=== PATIENT | female | born 2005 | race Caucasian/White ===

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

== ENCOUNTER 2023-08-16 16:06 | Inpatient (IN) | payer OTHER, MEDICAID, SELFPAY ==
[2023-08-16] VITALS (9 sets, daily range): BP systolic 113–144; BP diastolic 72–89; PULSE 91–114; TEMP 36.4–36.6; BMI 41.6
[2023-08-16 18:05] LABS: Basophils Percent Auto 0.2 % (0.2-1.2); Eosinophils Absolute Auto 0.1 K/mm3 (0-0.3); Eosinophils Percent Auto 0.5 % (0-4.4); Hematocrit 37.1 % (37.0-47.0); Hemoglobin 11.7 g/dL (12.0-15.0); Immature Granulocyte Absolute 0.07 K/mm3 (0.00-0.031); Immature Granulocyte Percent A 0.5 % (0-0.5); Lymphocytes Absolute Auto 2.18 K/mm3 (0.9-3.2); Lymphocytes Percent Auto 15.5 % (18.3-44.2); Mean Corpuscular HGB Conc 31.5 g/dl (32-36); Mean Corpuscular Hemoglobin 23.6 pg (26-34); Mean Corpuscular Volume 74.9 fl (80-100); Mean Platelet Volume 10.4 fl (7.4-10.4); Monocytes Absolute Auto 1.2 K/mm3 (0.1-0.6); Monocytes Percent Auto 8.5 % (2.6-8.5); Neutrophils Absolute Auto 10.6 K/mm3 (1.3-6.7); Neutrophils Percent Auto 74.8 % (45.5-73.1); Platelet Count Result 253 k/mm3 (150-375); Red Blood Count 4.95 M/mm3 (4.2-5.4); Red Cell Distribution Width 15.6 % (11.5-14.5); White Blood Count 14.1 K/mm3 (4.5-10.0)
[2023-08-16 18:16] LABS: Microcytosis 1+ (NORMAL); Ovalocytes 1+; Platelet Estimate Adequate (Adequate); Schistocytes None Seen
[2023-08-16] MEDS: LACTATED RINGERS 1,000 ML 125 ML IV CONT (18:39)
[2023-08-16] MEDS: AMPICILLIN 2 GM/NS 100 ML 2 GM/100 ML BAG IVPB (18:39)
[2023-08-16] MEDS: miSOPROStol 25 MCG TABLET 50 MCG BY MOUTH ×2 (18:42→23:00)
[2023-08-16] MEDS: AMPICILLIN 1 GM/NS 50 ML 1 GM/50 ML BAG IVPB (23:00)
[2023-08-17] VITALS (58 sets, daily range): BP systolic 96–152; BP diastolic 51–118; PULSE 69–170; TEMP 36.2–36.6; O2SAT 98–100
[2023-08-17] MEDS: AMPICILLIN 1 GM/NS 50 ML 1 GM/50 ML BAG IVPB ×5 (02:59→19:16)
[2023-08-17] MEDS: miSOPROStol 25 MCG TABLET 50 MCG BY MOUTH (03:00)
[2023-08-17] MEDS: CALCIUM CARBONATE (TUMS) 500 MG (200 MG ELEMENTAL) 400 MG PO (03:34)
[2023-08-17] MEDS: OXYTOCIN 30 UNITS/NS 500 ML 30 UNITS/500 ML BAG IV CONT (08:51)
[2023-08-17 11:19] LABS: Rapid Plasma Reagin Non-Reactive (NonReactive)
[2023-08-17] MEDS: LACTATED RINGERS 1,000 ML 125 ML IV CONT ×2 (15:16→19:05)
--- NOTE | 2023-08-17 15:37 | WPDOBADMIT ---
Obstetrics - Admit Note Admission Note: record reviewed. No pertinent additions to the history and/or any subsequent changes in the physical findings that are not consistent with the expected course of the were found. Additions to the history and/or subsequent changes in the physical findings follow. None. EIL, complicated by FGR, now resolved. testing reactive. S/p cytotec x2, now on pitocin per protocol. FHR category I. Continue with current induction plan.
--- NOTE | 2023-08-17 15:39 | PM.OBPNLAB ---
Pain Control Date/time seen: 08/17/23 15:39 Comments: tolerating contractions well Pelvic Exam Dilation (cm): 3 Effacement (%): 70 station: -2 Amniotic membrane status: Ruptured Comments: AROM at 1245 of clear fluid Contractions Monitor mode: External Status status: Category l Assessment and Plan Pitocin rate (mU/min): 16 Assessment: induction ongoing Plan: continuous present management
[2023-08-17] MEDS: fentaNYL CITRATE INJ (*CRX) 100 MCG/2 ML VIAL 50 MCG IV PUSH ×2 (17:21→18:55)
--- NOTE | 2023-08-17 18:46 | P.PNAN_ITS ---
Anes - Initial Pre Proc Eval Procedure: Labor epidural Date/Time: 08/17/23 18:46 Surgeon: Davy Lennon MD Pre Op Diagnosis: Labor pain Pre Op Diagnosis: IOL Patient Data Age: 17 Gender: F Height: 1.55 m Weight: 100 kg Last Vital Signs Temp 36.6 C 08/17/23 17:10 Pulse 80 08/17/23 18:31 BP 136/64 08/17/23 18:31 O2 Del Method Room Air 08/16/23 18:28 Allergies Allergy/AdvReac Type Severity Reaction Status Date / Time No Known Allergies Allergy Verified 07/20/23 15:15 Home Medications Medication Instructions Recorded Confirmed Type vits no.126-ferrous fum 1 tablet PO DAILY 07/20/23 07/20/23 History 28 mg iron-folic acid 800 mcg tablet (Classic ) Laboratory Tests 08/16/23 17:42 RPR Non-reactive (NonReactive) Blood Type A Positive Antibody Screen Negative Patient hx anesthesia problems: none Family hx anesthesia problems: none Results Review: All pre-operative results and documents have been reviewed as part of the pre- operative evaluation. [facility] Past Medical History Medical History No significant medical problems Surgical History Surgical History No history of previous surgery Family History Family History Other No significant family history Social History Social History Smoking status: Current every day smoker Tobacco type: e-cigarettes/vaping Second hand tobacco smoke exposure: No Additional smoking assessment comments: pt vapes Alcohol intake: never Substance use: former Substance use type: marijuana Do You Feel Safe in your Home?: Yes Lack of Transportation: No Lack of Food: Never True Current Housing: I Have Housing Concerned About Future Housing: No Difficulty Paying Gas/Electric Bills: No Difficulty Paying for Meds: No Currently Unemployed: YES Education: High School Diploma/GED Difficulty w/ Childcare or Family Care: No Living arrangements: with family Additional living arrangements comments: She lives at home with her parents. Spiritual care concerns: No Anes - Eval Final PreProcedure Day of Procedure 08/17/23 18:46 Patient weight: obese Heart: regular rate and rhythm Lungs: clear to auscultation Neurological: alert and oriented ASA classification: III Anesthesia type and monitoring: regional epidural and standard monitoring Results Review: All pre-operative results and documents have been reviewed as part of the pre- operative evaluation. Informed Consent: The patient's anesthetic plan and its attendant risks and benefits were discussed with the patient/family/POA. Questions were solicited and answers provided to the satisfaction of the patient/family/POA.
--- NOTE | 2023-08-17 19:11 | WPDANESEPN ---
Anes - Epidural Procedure Note Date/Time: 08/17/23 19:11 Consent: I have discussed with the patient/family/POA, the placement of an epidural catheter and the use of epidural narcotic/local anesthetic for labor analgesia and/or postoperative pain management, including associated potential risks, benefits, complications and side effects. I have discussed alternative methods of labor analgesia and/or postoperative pain management. The patient/family/POA, understand(s) and wish(es) to proceed with epidural narcotic/local anesthetic for labor analgesia and/or postoperative pain management. Time-Out: A pre-procedural Time-Out was completed immediately before starting the procedure and confirmed: Patient Identification, Site, Procedure, Patient Position and the Availability of Requisite Equipment. Clinical Indications: Labor Pain Epidural Insertion Note Patient position: sitting Skin prep: chlorhexidine and sterile drape Needle: 18g Tuohy-Schliff Catheter: 20g Unstyleted Technique: Loss of resistance. Level of insertion: L3/4 Catheter skin rafa (cm): 12 Length in epidural space (cm): 7 Skin anesthesia: lidocaine 1% Test dose: 1.5% Lidocaine with 1:[id number] Epi, negative for subarachnoid Inj and negative for intravascular Inj Time of test dose: 19:02 Observations: tolerated well Complications: none
[2023-08-18] VITALS (136 sets, daily range): BP systolic 45–138; BP diastolic 25–102; PULSE 60–204; RESP 16–20; TEMP 36.3–37.4; O2SAT 93–100
[2023-08-18] MEDS: LACTATED RINGERS 1,000 ML 125 ML IV CONT ×3 (03:30→13:30)
[2023-08-18] MEDS: AMPICILLIN 1 GM/NS 50 ML 1 GM/50 ML BAG IVPB ×4 (03:30→10:04)
[2023-08-18] MEDS: ACETAMINOPHEN 500 MG TABLET 1000 MG (04:22)
[2023-08-18] MEDS: CALCIUM CARBONATE (TUMS) 500 MG (200 MG ELEMENTAL) (04:22)
[2023-08-18] MEDS: OXYTOCIN 30 UNITS/NS 500 ML 30 UNITS/500 ML BAG IV CONT (06:27)
--- NOTE | 2023-08-18 08:24 | PM.OBPNLAB ---
Pain Control Date/time seen: 08/18/23 08:24 Comments: Pain well controlled with epidural Pelvic Exam Dilation (cm): 7 Effacement (%): 90 station: -2 Amniotic membrane status: Ruptured Contractions Monitor mode: Internal Status status: Category l Comments: prolonged decel following rotation, recovered well Assessment and Plan Pitocin rate (mU/min): 22 Assessment: induction ongoing Comments: LOT position on BSUS; attempted to manually rotate head with little change. Pelvis appears adequate. WIll continue position changes to encourage descent into pelvis.
[2023-08-18] MEDS: SODIUM CHLORIDE 0.9% IV 300 ML 600 ML I-UTERINE (10:04)
[2023-08-18] MEDS: CALCIUM CARBONATE (TUMS) 500 MG (200 MG ELEMENTAL) PO (10:04)
--- NOTE | 2023-08-18 12:44 | PM.OBPNLAB ---
Pain Control Date/time seen: 08/18/23 12:44 Comments: Pain well controlled with epidural Pelvic Exam Dilation (cm): 7 Effacement (%): 90 station: -2 Amniotic membrane status: Ruptured Contractions Monitor mode: Internal Status status: Category l Assessment and Plan Plan: Comments: SVE unchanged x 12 hours despite position changes and attempt at manual rotation. FHR intermittently category II with recurrent variable decels and intermittent late decels. Moderate variability throughout. Discussed with patient that given no change after multiple interventions, would recommend primary c section for failure to progess. R/b including bleeding, infection and injury to surrounding structures discussed with patient. Patient voices understanding and agrees to proceed with primary c section. Will start ancef and azithromycin 2/2 ROM.
[2023-08-18] MEDS: AZITHROMYCIN 500 MG/NS 250 ML 500 MG/250 ML BAG 250 MG IVPB (12:57)
[2023-08-18] MEDS: ACETAMINOPHEN 500 MG TABLET 1000 MG PO (12:58)
[2023-08-18] MEDS: ONDANSETRON INJ 4 MG/2 ML VIAL IV PUSH (13:13)
[2023-08-18] MEDS: FAMOTIDINE 20 MG/2 ML VIAL IV PUSH (13:13)
[2023-08-18] MEDS: ceFAZolin 2 GM/D5W 50 ML 2 GM/50 ML BAG IVPB (13:17)
--- NOTE | 2023-08-18 14:12 | W.PM.OBCSD ---
OB - Delivery Note Procedure Delivery date: 08/18/23 Pre-op diagnosis: Elective Induction of Labor Post-op Diagnosis: Other (same plus failure to progress) Induction method: Per Misoprostol Protocol Delivery augmentation: Rupture of Membranes and Pitocin Delivery monitor: Internal FHT and Internal Uterine Prior to decision for section, ACOG/SMFM labor guidelines were considered and discussed with the patient and staff. Decision made to proceed with the section.: Yes Procedure Performed: Primary Primary branch: low cervical, transverse Surgeon: Davy Lennon MD Anesthesia type: Epidural Description of Procedure/Findings: The patient was taken to the operating room where she was placed in the dorsal supine position with a leftward tilt. The electronic monitor was placed and heart rate was found to be reassuring. She was prepped and draped in the normal sterile fashion, and anesthesia was checked to be adequate. A Pfannenstiel skin incision was made with the scalpel and carried through to the underlying layer of fascia with the scalpel. The fascia was incised in the midline and the incision extended laterally with the Navarro scissors. The superior aspect of the fascial incision was then grasped with Adelaide clamps, elevated, and the underlying rectus muscles dissected off bluntly and with Bovie cautery. Attention was then turned to the inferior aspect of the fascial incision, which in similar fashion was grasped, elevated, and the rectus muscles dissected off.?The rectus muscles were then in the midline, and the peritoneum entered bluntly. The peritoneal incision was extended superiorly and inferiorly with good visualization of the bladder. With the bladder blade providing retraction and visualization, the lower uterine segment was incised in a transverse fashion with the scalpel. The uterine incision was then extended laterally. The bladder blade was removed and the infant's head was elevated and delivered atraumatically. The remainder of the was then delivered without difficulty, and the 's nose and mouth were suctioned with the bulb suction. The umbilical cord was doubly clamped and cut. The was then handed off to the waiting nursing staff. Specimens then obtained as listed below. The placenta was then removed manually and the uterus was exteriorized and cleared of all clots and debris. The uterine incision was repaired with 0-Monocryl in a running, interlocked fashion. The posterior cul-de-sac was manually cleared of all clots and debris. The uterus was returned to the abdomen. The gutters were then manually cleared of all clots and debris.? The uterine incision was visualized to be hemostatic. The fascia was reapproximated with 0-Vicryl in a running fashion. The subcutaneous tissues were irrigated with warmed normal saline, and hemostasis was assured. The subcutaneous tissue was greater than 2 cm and closed in a running fashion with 2-0 plain gut suture.? The skin was closed with 4-0 monocryl in a running subcuticular stitch and skin glue. Fundal pressure was applied to express remaining intrauterine clots and debris. The patient tolerated the procedure well. Sponge, lap, and needle counts were correct times three per nursing. The patient was taken to the recovery room in stable condition. Specimen: No Pathology: None sent Complications: No immediate complications Condition: Stable Disposition: Floor Baby Date of : 08/18/23 Weeks of gestation at delivery: 40 gender: Female Weight (pounds): 7 Weight (ounces): 8 presentation: vertex position: Left Occiput Transverse Placenta delivery description: Expressed Cord Vessel Description: 3 Vessels
[2023-08-18] MEDS: OXYTOCIN 30 UNITS/NS 500 ML 30 UNITS/500 ML BAG 125 UNITS IV CONT (15:45)
--- NOTE | 2023-08-18 16:35 | PC.NURSE ---
Patient transferred to post room #286 per bed to room 286. Support person present. Oriented to unit, room, information board, rooming in, admission packet and security measures. Patient verbalizes understanding.
[2023-08-18] MEDS: DEXTROSE 5%/0.45% SOD CHL 1,000 ML 125 ML IV CONT (18:55)
[2023-08-18] MEDS: KETOROLAC 15 MG/ML VIAL (*BKC) IV PUSH (19:25)
[2023-08-18] MEDS: ACETAMINOPHEN 325 MG TABLET 650 MG PO (19:25)
[2023-08-18] MEDS: diphenhydrAMINE HCl INJ 50 MG/ML VIAL 25 MG IV PUSH (23:31)
[2023-08-19] MEDS: KETOROLAC 15 MG/ML VIAL (*BKC) IV PUSH ×3 (01:08→13:27)
[2023-08-19] MEDS: ACETAMINOPHEN 325 MG TABLET 650 MG PO ×4 (01:08→18:58)
[2023-08-19] MEDS: KCL 20 MEQ/D5/0.45% SOD CHL 1,000 ML 125 ML IV CONT (02:06)
[2023-08-19 05:50] LABS: Basophils Percent Auto 0.2 % (0.2-1.2); Eosinophils Percent Auto 0.2 % (0-4.4); Hematocrit 28.1 % (37.0-47.0); Hemoglobin 8.7 g/dL (12.0-15.0); Immature Granulocyte Absolute 0.14 K/mm3 (0.00-0.031); Immature Granulocyte Percent A 0.6 % (0-0.5); Lymphocytes Absolute Auto 2.26 K/mm3 (0.9-3.2); Lymphocytes Percent Auto 10.1 % (18.3-44.2); Mean Corpuscular Hemoglobin 23.6 pg (26-34); Mean Corpuscular Volume 76.4 fl (80-100); Mean Platelet Volume 10.9 fl (7.4-10.4); Monocytes Absolute Auto 1.5 K/mm3 (0.1-0.6); Monocytes Percent Auto 6.9 % (2.6-8.5); Neutrophils Absolute Auto 18.3 K/mm3 (1.3-6.7); Platelet Count Result 207 k/mm3 (150-375); Red Blood Count 3.68 M/mm3 (4.2-5.4); Red Cell Distribution Width 15.7 % (11.5-14.5); White Blood Count 22.3 K/mm3 (4.5-10.0)
[2023-08-19 06:51] LABS: Anisocytosis 1+; Platelet Estimate Adequate (Adequate); Polychromasia 1+; Schistocytes None Seen
--- NOTE | 2023-08-19 07:51 | P.PNOB_ITS ---
OB - PN: Subj Subjective Date/time seen: 08/19/23 07:51 Interval history: POD#1 S/p PLTCS for failure to progress Doing well, pain well controlled Passing flatus Tolerating general diet , baby latching well OB - PN: Obj Data Labs 08/19/23 05:29 Labs: Laboratory Results - last 24 hr 08/19/23 05:29 WBC 22.3 H RBC 3.68 L Hgb 8.7 L D Hct 28.1 L MCV 76.4 L MCH 23.6 L MCHC 31.0 L RDW 15.7 H Plt Count 207 MPV 10.9 H Immature Gran % (Auto) 0.6 H Neut % (Auto) 82.0 H Lymph % (Auto) 10.1 L [place] % (Auto) 6.9 Eos % (Auto) 0.2 Baso % (Auto) 0.2 Lymph # (Auto) 2.26 [place] # (Auto) 1.5 H Eos # (Auto) 0.0 Baso # (Auto) 0.0 Abs Immat Gran (auto) 0.14 H Absolute Neuts (auto) 18.3 H Absolute Nucleated RBC 0.000 Nucleated RBC % 0.0 Platelet Estimate Adequate Polychromasia 1+ Anisocytosis 1+ Schistocytes None seen OB - PN A/P Assessment and Plan (1) S/P : Code(s): Z98.891 - History of uterine scar from previous surgery Status: Acute Assessment and Plan: - doing well, meeting post op milestones - catheter to be removed this morning, will monitor for spontaneous void - tolerating general diet - continue routine postop care (2) Anemia: Code(s): D64.9 - Anemia, unspecified Status: Acute Assessment and Plan: - Hgb 8.7 post op - Venofer x1 ordered Time Spent With Patient Time: Total time spent is greater than 50% in coordination of care (as documented) at patient's floor/unit and/or counseling patient: Review of Systems Review of Systems: All systems reviewed & are unremarkable except as noted in HPI and below Exam Const: General: comfortable and no acute distress Resp: Effort & Inspection: normal respiratory effort GI: Other: abdominal exam deferred due to patient
[2023-08-19 08:00] VITALS: BP 124/55; PULSE 87; RESP 16; TEMP 36.6; O2SAT 99
[2023-08-19] MEDS: DOCUSATE SODIUM 100 MG CAPSULE PO ×2 (08:31→17:36)
[2023-08-19] MEDS: MULTIVIT/MIN/PREN/FOL AC/IRON TABLET 1 TAB PO (08:31)
[2023-08-19] MEDS: SIMETHICONE 80 MG TAB.CHEW PO ×3 (08:31→17:36)
[2023-08-19] MEDS: LIDOCAINE 5% PATCH 1 PATCH TRANSDERM (08:33)
[2023-08-19] MEDS: IRON SUCROSE COMPLEX 300 MG in SODIUM CHLORIDE 0.9% IV 250 ML 177 MG IVPB (08:43)
--- NOTE | 2023-08-19 09:00 | WPDANLDNPN2 ---
Anes-Prog Note L&D-Neuraxial Date/Time: 08/19/23 09:00 Neuraxial medications: epidural PF morphine Opiod-related complaints: none Patient feedback: Patient satisfied with post-operative pain management.
--- NOTE | 2023-08-19 09:00 | WPDANLDPN2 ---
Anes-Prog Note L&D Date/Time: 08/19/23 09:00 Neuro status: Neuro function grossly intact. Cardiovascular status: normal Respiratory status: normal Airway patency: baseline Mental status: baseline Post-Op hydration status: normal Vital Signs: Last Vital Signs Temp 36.9 C 08/18/23 22:50 Pulse 90 08/18/23 22:50 Resp 16 08/18/23 22:50 BP 134/76 08/18/23 22:50 Pulse Ox 98 08/18/23 16:26 O2 Del Method Room Air 08/18/23 16:21 Pain score (VAS): 2 I/O: Intake & Output 08/18/23 08/19/23 08/19/23 23:59 07:59 15:59 Intake Total 500 1197.9 Output Total 775 900 Balance -275 297.9 Post-procedural complaints: none Patient feedback: Patient satisfied with anesthetic care.
[2023-08-19 12:00] VITALS: BP 133/62; PULSE 87; RESP 18; TEMP 36.3
[2023-08-19] MEDS: POLYSACCHARIDE IRON COMPLEX 150 MG CAPSULE PO (17:36)
[2023-08-19] MEDS: IBUPROFEN 600 MG TABLET PO (18:58)
[2023-08-19 20:00] VITALS: BP 134/74; PULSE 88; RESP 16; TEMP 36.6; O2SAT 99
[2023-08-20] MEDS: ACETAMINOPHEN 325 MG TABLET 650 MG PO ×2 (01:15→07:35)
[2023-08-20] MEDS: IBUPROFEN 600 MG TABLET PO ×2 (01:15→07:36)
[2023-08-20] MEDS: DOCUSATE SODIUM 100 MG CAPSULE PO (07:35)
[2023-08-20] MEDS: POLYSACCHARIDE IRON COMPLEX 150 MG CAPSULE PO (07:35)
[2023-08-20] MEDS: SIMETHICONE 80 MG TAB.CHEW PO (07:35)
[2023-08-20] MEDS: MULTIVIT/MIN/PREN/FOL AC/IRON TABLET 1 TAB PO (07:36)
[2023-08-20 07:40] VITALS: BP 138/82; PULSE 90; RESP 18; TEMP 36.4; O2SAT 99
--- NOTE | 2023-08-20 09:46 | PM.OBPNVD ---
OB - PN: Subj Subjective Date/time seen: 08/20/23 09:46 Interval history: POD#2 S/p PLTCS for failure to progress Doing well, pain well controlled Passing flatus Tolerating general diet , baby latching well Emptying bladder without issue Ready for discharge today OB - PN: Obj Data Labs 08/19/23 05:29 OB - PN A/P Assessment and Plan (1) S/P : Code(s): Z98.891 - History of uterine scar from previous surgery Status: Acute Assessment and Plan: - POD#2, meeting postop milestones - incision c/d/i - tolerating general diet - baby doing well - ready for discharge today, f/u in 1 week for postop check Time Spent With Patient Time: Total time spent is greater than 50% in coordination of care (as documented) at patient's floor/unit and/or counseling patient: Review of Systems Review of Systems: All systems reviewed & are unremarkable except as noted in HPI and below Exam Const: General: comfortable and no acute distress Resp: Effort & Inspection: normal respiratory effort GI: Other: Incision c/d/i
--- NOTE | 2023-08-20 11:20 | PC.NURSE ---
[id number] Introductions were made, then consulted with patient to assess needs related to . Mother led the conversation with her?plans to feed?her infant, the?experience so far along with concerns of having long feedings and the uncertainty of her infant getting enough. has 7% weight loss at greater than 24 hours of age and less than 48 hours of age. We discussed typical first 24, 2nd 24 hour behaviors, and milk supply. Encouraged understanding of the benefits of skin to skin (demonstrating unwrapping and placing upright on her chest), stimulating with massage touch, changing positions to encourage wakefulness, how to watch for early feeding cues, responsive feeding, feeding on demand (aiming for 8-12 times in 24 hours, about every 2-3 hours), milk production, hand expression (copious of human milk expressed), building/maintaining a milk supply, duration of feeding, signs of adequate intake/output ( had more than adequate prior to supplemented bottle last night) and how to record on the feeding sheet. Mother works well with her with encouragement, education, and has independently latched to the left breast using cradle positioning. Infant is detached related to the mouth at less than 90 degrees. Mother denies pain even though the nipple is misshaped like a new tube of lipstick. Reviewed positioning and ear, shoulder, hip alignment, supporting the breast to facilitate a deep latch, asymmetrical latch (off-center), leading with the chin with a big, open, wide gape and body close to mother. refuses to latch deeply after multiple attempts and resetting with [id number] after refusal to latch deeper onto mothers breast. Mother latched independently her infant to the left, then the right breast effectively using cradle positioning. Education given to the mother of how to visualize the suckling (with good rocking jaw motion), swallows (dropping of the lower jaw) and how to listen for drinking at the breast (the ka sound) which infant demonstrated well. Infant was able to maintain latch without pain to mother protecting the nipple with optimal positioning, latching, however; the nipple is somewhat misshaped after the . Reviewed comfort measures of healing with a warm, wet washcloth to rinse breast, then leave open to air-dry, good handwashing when or touching the breast/nipples to prevent infection. Mother voiced understanding of skin to skin, stimulating with massage touch, responsive feedings, hand expressed colostrum, talking to infant to encourage if it has been 2 -2.5 hours since the start of the last , to call if infant does not latch, or if there is discomfort with . Resources used for education were facilitated with the visual educational handouts/ tool/mom and baby guide. Inpatient/outpatient resources provided with feeding sheet, name written on the communication board, and the mom/baby guide. Parents voiced understanding of information, demonstrated learning and will call if there is a request for assistance. Reported to the Primary RN.
--- NOTE | 2023-08-20 11:26 | P.DS_ITS ---
DS: Admitting Diagnosis Discharge Date 08/20/23 Admitting Diagnosis elective induction of labor DS: Discharge Diagnosis Discharge Diagnosis (1) S/P : Code(s): Z98.891 - History of uterine scar from previous surgery Status: Acute (2) Anemia: Code(s): D64.9 - Anemia, unspecified Status: Acute OB - DS: Summary OB Procedures : None OB Procedures Intrapartum: low cervical, transverse OB Procedures: : None Peripartum Data Procedures: Procedures Operation Date: 08/18/23 13:00 Actual Procedure Side Surgeon p Section Bilateral Davy Lennon MD Time Spent with Patient Time attestation: Total time spent providing and/or coordinating discharge services: Discharge Plan Discharge Attending physician on discharge: Davy Lennon Discharging Clinician: Davy Lennon Patient Disposition: Home, Self-Care Activity: may shower and pelvic rest Diet: as tolerated Patient Instructions: Antibiotic Form Stand Alone Forms: General Discharge Information Follow-up/Referrals: Davy Lennon MD [Physician] - 1 Week Discharge Medications: New hydrocodone-acetaminophen 5-325 mg Tablet 1 tablet PO Q3H PRN (Reason: Breakthrough Pain Rated 4-6) Qty: 18 0RF docusate sodium 100 mg Capsule 100 mg PO BID Qty: 60 0RF ibuprofen 600 mg Tablet 600 mg PO Q6H Qty: 30 0RF Continued Classic 28 mg iron- 800 mcg Tablet 1 tablet PO DAILY Date of admission: 08/16/23 16:06 Primary Care Provider: PHYSICIAN,CR[employer] Admitting Provider: Davy Lennon Attending physician on admission: Davy Lennon Condition: Stable
[2023-08-21 11:11] VITALS: BP 139/82; PULSE 88; RESP 18; TEMP 36.7; O2SAT 100
--- NOTE | 2023-08-21 21:07 | PM.IMHP ---
H&P: HPI History of Present Illness Date/Time: 08/18/23 1230 Chief Complaint: EIL Narrative: Patient is a 17 year old G1 at 40 weeks who presented for EIL. has been complicated by FGR, most recently resolved with normal testing and UADs. Induction has proceeded with cytotec followed by pitocin and AROM, however SVE has been unchanged for 12 hours despite position changes and intrauterine resuscitation. Discussed recommendation for primary c section including r/b of proceeding with c section vs attempting to continue induction. Patient voices understanding and will proceed with primary c section. Review of Systems Review of Systems: All systems reviewed & are unremarkable except as noted in HPI and below PMFSH Past Medical History Medical History No significant medical problems Surgical History Surgical History No history of previous surgery Family History Family History Other No significant family history Social History Social History Smoking status: Current every day smoker Tobacco type: e-cigarettes/vaping Second hand tobacco smoke exposure: No Additional smoking assessment comments: pt vapes Alcohol intake: never Substance use: former Substance use type: marijuana Do You Feel Safe in your Home?: Yes Lack of Transportation: No Lack of Food: Never True Current Housing: I Have Housing Concerned About Future Housing: No Difficulty Paying Gas/Electric Bills: No Difficulty Paying for Meds: No Currently Unemployed: YES Education: High School Diploma/GED Difficulty w/ Childcare or Family Care: No Living arrangements: with family Additional living arrangements comments: She lives at home with her parents. Spiritual care concerns: No Meds Home Medications and Allergies Home Medications Medication Instructions Recorded Confirmed Type vits no.126-ferrous fum 1 tablet PO DAILY 07/20/23 07/20/23 History 28 mg iron-folic acid 800 mcg tablet (Classic ) docusate sodium 100 mg capsule 100 mg PO BID #60 caps 08/20/23 Rx hydrocodone 5 mg-acetaminophen 325 1 tablet PO Q3H PRN Breakthrough 08/20/23 Rx mg tablet Pain Rated 4-6 #18 tabs ibuprofen 600 mg tablet 600 mg PO Q6H #30 tabs 08/20/23 Rx Allergies Allergy/AdvReac Type Severity Reaction Status Date / Time No Known Allergies Allergy Verified 07/20/23 15:15 Vital Signs Vital Signs - 24 hr 08/21/23 11:11 Temperature 98.1 F Pulse Rate 88 Respiratory Rate 18 Blood Pressure 139/82 Pulse Oximetry 100 Assessment and Plan Assessment and plan (1) Failure to progress in labor: Code(s): O62.2 - Other uterine inertia Status: Acute Assessment and Plan: - SVE unchanged x 12 hours despite intrauterine resuscitation and position changes and adequate uterine contractions - r/b of primary c section discussed with patient who agrees to proceed with primary c section
--- NOTE | 2023-08-21 21:13 | WPDHPUPDATE1 ---
History and Physical Update Update Date/Time: 08/18/2023 1230 History and Physical has been reviewed, including an updated exam of the patient. There are NO changes in the patient's condition. Risks, benefits, and alternatives have been discussed and questions answered. Patient agrees to proceed with procedure.
== END 2023-08-20 12:33 | disposition home or self-care (01) | DRG 788 ==
LOC: ANHLDR 16:10 → ANHOB2 08-18 16:53
PROVIDERS: Admitting Provider Obstetrics & Gynecology; Visit Provider Obstetrics & Gynecology
PROC: 10D00Z1 Extraction of Products of Conception, Low, Open Approach (ICD-10-PCS; CPT 59514; principal; 2023-08-18 13:00)
DX: O62.0 Primary inadequate contractions (principal); O99.02 Anemia complicating childbirth; D64.9 Anemia, unspecified; O99.824 Streptococcus B carrier state complicating childbirth; O77.0 Labor and delivery complicated by meconium in amniotic fluid; O99.334 Smoking (tobacco) complicating childbirth; F17.290 Nicotine dependence, other tobacco product, uncomplicated; O76 Abnormality in fetal heart rate and rhythm complicating labor and delivery; Z3A.40 40 weeks gestation of pregnancy; Z37.0 Single live birth
CPT/HCPCS: 36415; 85025; 86592; 86850; 86900; 86901; A9270; J0290; J0456; J0690; J1200; J1756; J1885; J2274; J2405; J2590; J2795; J3010; J3480; J7030; J7050; J7120

== ENCOUNTER 2024-05-03 12:00 | Emergency (ER) | payer OTHER, MEDICAID, SELFPAY ==
[2024-05-03 12:11] VITALS: BP 158/96; PULSE 95; RESP 18; TEMP 36.5; O2SAT 100
[2024-05-03 12:22] VITALS: BP 144/93; PULSE 77; RESP 19; TEMP 36.4; O2SAT 100
--- NOTE | 2024-05-03 14:06 | ED_ITS ---
HPI - Dental/Oral General Chief complaint: Dental/Oral Stated complaint: Dental Pain Time Seen by Provider: 05/03/24 13:13 History of Present Illness HPI Narrative: 18-year-old female presenting with dental pain. States that it started this morning. She called her dentist who told her to call back on Sunday. Has been using Tylenol with minimal relief. No swelling. No further complaints. Related Data Home Medications ?Medication ?Instructions ?Recorded ?Confirmed ?Last Taken ?Type vits no.126-ferrous fum 1 tablet PO DAILY 07/20/23 07/20/23 1 Day Ago History 28 mg iron-folic acid 800 mcg ~07/19/23 tablet (Classic ) Allergies Allergy/AdvReac Type Severity Reaction Status Date / Time No Known Allergies Allergy Verified 07/20/23 15:15 Review of Systems Review of Systems: All systems reviewed & are unremarkable except as noted in HPI and below PMFSH Past Medical History Medical History No significant medical problems Surgical History Surgical History No history of previous surgery Family History Family History Other No significant family history Social History Social History Smoking status: Current every day smoker Tobacco type: e-cigarettes/vaping Second hand tobacco smoke exposure: No Additional smoking assessment comments: pt vapes Alcohol intake: never Substance use: former Substance use type: marijuana Do You Feel Safe in your Home?: Yes Lack of Transportation: No Lack of Food: Never True Current Housing: I Have Housing Concerned About Future Housing: No Difficulty Paying Gas/Electric Bills: No Difficulty Paying for Meds: No Currently Unemployed: YES Education: High School Diploma/GED Difficulty w/ Childcare or Family Care: No Living arrangements: with family Additional living arrangements comments: She lives at home with her parents. Spiritual care concerns: No Exam Narrative: GENERAL: Well-appearing, in no acute distress HEAD: Normocephalic, atraumatic. EYES: PERRLA and EOMI. ENT: Tooth 15. A bit tender with palpation, no abscesses or drainage NECK: Supple. CHEST: . No respiratory distress. HEART: Regular rate and rhythm EXTREMITIES: Normal range of motion SKIN: Warm, dry, no rash. NEURO: Alert and oriented x3. PSYCH: Normal mood and affect. Course Vital Signs Vital signs: Vital Signs Temperature 97.7 F 05/03/24 12:11 Pulse Rate 95 05/03/24 12:11 Respiratory Rate 18 05/03/24 12:11 Blood Pressure 158/96 H 05/03/24 12:11 Pulse Oximetry 100 05/03/24 12:11 Temperature 97.6 F 05/03/24 12:22 Pulse Rate 77 05/03/24 12:22 Respiratory Rate 19 05/03/24 12:22 Blood Pressure 144/93 H 05/03/24 12:22 Pulse Oximetry 100 05/03/24 12:22 Oxygen Delivery Room Air 05/03/24 12:22 MDM - Dental/Oral MDM Narrative Medical decision making narrative: 18-year-old female presenting with dental pain. Exam remarkable for the above. Will treat with Augmentin and naproxen. She will follow-up with her dentist on Sunday. Appropriate return precautions given. Discharged in stable condition. Differential Diagnosis Differential diagnosis: Likely dental caries, toothache and dental abscess Medical Records Attestation: I reviewed the patient's medical records. Critical Care Time Critical Care Time Critical Care Time: No Discharge Plan Discharge Clinical Impression: Pain, dental Patient Disposition: Home, Self-Care Condition: Stable Instructions: Antibiotic Form, Toothache (ED) Additional Instructions: Please complete the antibiotics as prescribed. Follow-up closely with your dentist as discussed. You may use the naproxen for pain control. If your symptoms worsen or other concerning symptoms arise, please return to the ER. Patient Language: American Prescriptions: New naproxen 500 mg tablet 500 mg PO BID PRN (Reason: pain) Qty: 20 0RF amoxicillin-pot clavulanate 875-125 mg tablet 1 tablet PO Q12H 7 Days Qty: 14 0RF No Action Classic 28 mg iron- 800 mcg Tablet 1 tablet PO DAILY docusate sodium 100 mg Capsule 100 mg PO BID Qty: 60 0RF hydrocodone-acetaminophen 5-325 mg Tablet 1 tablet PO Q3H PRN (Reason: Breakthrough Pain Rated 4-6) Qty: 18 0RF ibuprofen 600 mg Tablet 600 mg PO Q6H Qty: 30 0RF Follow-up/Referrals: EMPLOYEE,HE[facility] EXAM [Primary Care Provider] -
[2024-05-03] MEDS: AMOXICILLIN/CLAVULANATE K 875-125 MG TAB 1 TABLET PO (14:16)
[2024-05-03] MEDS: KETOROLAC 30 MG/ML VIAL (*BKC) IM (14:16)
--- OUTSIDE RECORDS SUMMARY | 2024-05-07 11:27 | XMS_ITS | Encounter Summary ---
Author Organization [facility] Address [address] [place] [address] Care Team Providers Care Engineering Executive Name Role Phone Tavo Brown MD Primary Care Provider [phone] Encounter Details Date Type Department Care Team (Latest Contact Info) Description 11/12/2009 12:01 AM CDT - 11/12/2009 11:59 PM CDT Hospital Encounter [facility] [address] [place] [address] [place] [address] [place] [address] Surgery General Discharge Disposition: Home or Self Care Social History Tobacco Use Types Packs/Day Years Used Date Smoking Tobacco: Never Assessed Sex and Gender Information Value Date Recorded Sex Assigned at Not on file Gender Identity Not on file Sexual Orientation Not on file documented as of this encounter Discharge Instructions * Discharge Instructions* Document, Scanned - 11/12/2009 12:00 AM CDT documented in this encounter OR Notes * Operative - Roman Underwood [facility] ATTENDING SURGEON: Roman Underwood M.D. PREOPERATIVE DIAGNOSIS: Chronic otitis media with effusion. POSTOPERATIVE DIAGNOSIS: Chronic otitis media with effusion. PROCEDURE PERFORMED: Bilateral myringotomy and tube placement. ANESTHESIA: General mask. INDICATIONS FOR PROCEDURE: 4-year-old girl with a history of frequent recurrent and chronic otitis media with effusion here for BMT. PROCEDURE IN DETAIL: After an adequate level of general mask anesthesia had been obtained, the right ear was examined under the operating microscope. A small amount of cerumen was removed from the ear canal. A myringotomy was made in the anterosuperior quadrant of the tympanic membrane. Mucoid effusion was suctioned from the middle ear space and irrigated. A collar button tube was placed in the myringotomy and Ciprodex otic drops were applied to the ear. The left ear was handled in a similar fashion with similar findings. The patient tolerated the procedure well, and after emerging from anesthesia, was taken to the recovery room in good condition. Dictated By: ROMAN UNDERWOOD MD NICKO/mary JOB ID: [id number] documented in this encounter Miscellaneous Notes * Miscellaneous Scans - Document, Scanned - 11/12/2009 12:00 AM CDT * Miscellaneous Scans - Document, Scanned - 11/12/2009 12:00 AM CDT * Miscellaneous Scans - Document, Scanned - 11/12/2009 12:00 AM CDT * Miscellaneous Scans - Document, Scanned - 11/12/2009 12:00 AM CDT * Miscellaneous Scans - Document, Scanned - 11/12/2009 12:00 AM CDT * Miscellaneous Scans - Document, Scanned - 11/12/2009 12:00 AM CDT * Miscellaneous Scans - Document, Scanned - 11/12/2009 12:00 AM CDT * Miscellaneous Scans - Document, Scanned - 11/12/2009 12:00 AM CDT * Miscellaneous Scans - Document, Scanned - 11/12/2009 12:00 AM CDT * Miscellaneous Scans - Document, Scanned - 11/12/2009 12:00 AM CDT * Miscellaneous Scans - Document, Scanned - 11/12/2009 12:00 AM CDT documented in this encounter Plan of Treatment Not on file documented as of this encounter Visit Diagnoses Not on filedocumented in this encounter Care Teams Engineering Executive Relationship Specialty Start Date End Date Tavo Brown MD [address] [place] [address] PCP - General 11/03/09 documented as of this encounter
--- OUTSIDE RECORDS SUMMARY | 2024-05-07 11:27 | XMS_ITS | Data Portability ---
Author Organization [facility] [place] Address [address] [place] [address] [place] [address] Care Team Providers Care Editor Managing Director Name Role Phone PRESLEYRAÚL Muñoz Primary Care Provider [phone] Assessment No assessment recorded. Plan of Treatment Reminders Order Date Submit Date Provider Last Modified By Organization Details Last Modified Time Details Appointments None recorded. Lab test, urine 2023 024 [email or web address] [place], [address], [place], [address], 4 13:53:19 Referral None recorded. Procedures None recorded. Surgeries None recorded. Imaging US, transvagina l 2023 024 [email or web address] [place] [facility] [address], [place], [address], 4 18:40:25 Medication Orders Mirena 21 mcg/24 hr (up to 8 years) 52 mg intrauterin e device 2023 024 [email or web address] [id number], [address], [place], [address], 4 14:23:51 Loestrin Fe 20 (28-Day) 1 mg-20 mcg (21)/75 mg (7) tablet 2023 024 ZEENAT [id number], [address], [place], [address], 4 14:13:08 Valtrex 1 gram tablet 2023 024 [id number], [address], [place], [address], 4 10:19:55 Patient TargetsNo targets recorded. Patient InstructionsNo instructions recorded. Reason for Referral None Reported. Results Created Date Observation Date Name Description Value Unit Range Abnormal Flag Note LastModifiedBy Organization Detail LastModifiedTime 11/05/19 24 11/05/2023 BHCG, QUANT ITATI VE B-HCG <0.2 mIU/m L This assay was perfo rmed using [employer] ratio n reage nts and test kits. Value s obtai jose with other assay metho ds or kits canno t be used inter kuo eably . Refer ence Range s: Non-p regna nt, preme nopau chavez women : 0.0-5 .3 mIU/m L Postm enopa usal women : 0.0-7 .0 mIU/m L Myra l Pregn zaida: Gesta john l Age bHCG Conc. - mIU/m L 3 Weeks 5.8 - 71.7 4 Weeks 9.5 - 750 5 Weeks 217-7 138 6 Weeks 158 - 31,79 5 7 Weeks 3,697 - 162,5 63 8 Weeks 32,06 5 - 149,5 71 9 Weeks 63,80 3 - 151,4 10 10 Weeks 46,50 9 - 186,9 77 12 Weeks 27,83 2 - 210,6 12 14 Weeks 13,95 0 - 62,53 0 15 Weeks 12,03 9 - 70,97 1 16 Weeks 9,040 - 56,45 1 17 Weeks 8,175 - 55,86 8 18 Weeks 8,099 - 58,17 6 Not Available [facility] (Lab) [address], [place], [address], 11/06/2023 06:56:42 11/06/19 24 11/06/2023 CT/GC AND TRICH OMONA S VAGIN SHONDA (RRNA ), SWAB chlamydia trachomatis, PCR Negati ve negati ve Not Available [facility] (Lab) [address] [facility], [place], [address], 11/07/2023 11:40:12 11/06/19 24 11/06/2023 CT/GC AND TRICH OMONA S VAGIN SHONDA (RRNA ), SWAB neisseria gonorrhoeae, PCR Negati ve negati ve Not Available [facility] (Lab) [address] [facility], [place], [address], 11/07/2023 11:40:12 11/06/19 24 11/06/2023 CT/GC AND TRICH OMONA S VAGIN SHONDA (RRNA ), SWAB trichomonas vaginalis ribosomal RNA (rrna) Negati ve negati ve Not Available [facility] (Lab) [address] [facility], [place], [address], 11/07/2023 11:40:12 11/06/19 24 11/06/2023 pregn zaida test, urine HCG negati ve Not Available [place] [address], [place], [address], 11/06/2023 13:53:04 12/31/19 24 12/31/2023 CT/GC AND TRICH OMONA S VAGIN SHONDA (RRNA ), URINE chlamydia trachomatis, PCR Negati ve negati ve Not Available [facility] (Lab) [address] [facility], [place], [address], 01/07/2024 08:54:55 12/31/19 24 12/31/2023 CT/GC AND TRICH OMONA S VAGIN SHONDA (RRNA ), URINE neisseria gonorrhoeae, PCR Negati ve negati ve Not Available [facility] (Lab) [address] [facility], [place], [address], 01/07/2024 08:54:55 12/31/19 24 12/31/2023 CT/GC AND TRICH OMONA S VAGIN SHONDA (RRNA ), URINE trichomonas vaginalis ribosomal RNA (rrna) Negati ve negati ve Not Available [facility] (Lab) [address] [facility], [place], [address], 01/07/2024 08:54:55 12/31/19 24 12/31/2023 CULTU RE: HERPE S SIMPL EX VIRUS (HSV) , REFLE X TYPIN G source LESION FLUID Not Available [facility] (Lab) [address] [facility], [place], [address], 01/07/2024 08:54:55 12/31/19 24 12/31/2023 CULTU RE: HERPE S SIMPL EX VIRUS (HSV) , REFLE X TYPIN G hsv culture, body fluid ISOLAT ED abnormal Not Available [facility] (Lab) [address] [facility], [place], [address], 01/07/2024 08:54:55 12/31/19 24 12/31/2023 CULTU RE: HERPE S SIMPL EX VIRUS (HSV) , REFLE X TYPIN G hsv 2 ISOLAT ED abnormal Not Available [facility] (Lab) [address] [facility], [place], [address], 01/07/2024 08:54:55 12/31/19 24 12/31/2023 CULTU RE: HERPE S SIMPL EX VIRUS (HSV) , REFLE X TYPIN G hsv 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 * * The incid ence of HSV 1 infec tion * * in the prese nce of HSV 2 (dual * * infec tion) is extre moiz rare. * Perfo rming Organ izati on Infor jean pierre n: Site ID: CB Name: Carly felton sPreeti Berg Addviolet ss: [id number] [place] [address] Dire tor: Liliana neumann V Valdez s Not Available [facility] (Lab) [address], [place], [address], 01/07/2024 08:54:55 12/05/19 24 12/05/2023 US, trans vagin al No observ ation record ed. [email or web address] [place] [address], [place], [address], 12/05/2023 12:23:29 12/05/19 24 12/05/2023 US, trans vagin al No observ ation record ed. [email or web address] [address], [place], [address], 12/06/2023 00:56:33 Result Notes None recorded. Problems Name Problem SNOMED Code Status Onset Date Resolution Date Notes Provider Name and Address Organization Details Recorded Time SNOMED CT Concept Completed 201906/21/2020 Encounte r for surveill ance of other contrace ptives;R ecorded Elsewher e: No Locat ion: [facility] S ource: EHR Advance Seal Delivery System Maintainer masood: N Practi ce ID: 0001 Remigio lable Time: 11:15:00 AM [facility] 16:10:00 Insertio n of subcutan eous contrace ptive Completed 201906/21/2020 Encounte r for initial prescrip tion of implanta ble subderma l contrace ptive;Re corded Elsewher e: No Locat ion: [facility] S ource: EHR Advance Seal Delivery System Maintainer masood: N Practi ce ID: 0001 Remigio lable Time: 11:15:00 AM Renuka [email or web address] [facility] 16:09:58 Contrace ptive sheath status [id number] Completed 201906/21/2020 Encounte r for initial prescrip tion of other contrace ptives;P ractice ID: [id number] Renuka Maravilla [facility], [facility] 1 16:09:53 Educatio n Completed 201906/21/2020 Encounte r for oth general cnsl and advice on contrace ption;Pr actice ID: 0001 Renuka Maravilla [facility], [facility] 1 16:09:55 Tobacco user [id number] Active 2022 vaping daily JACQUELINE KHALIL MD [address], [place], [address], [facility] 3 12:22:04 Pregnanc y [id number] Completed 202208/24/2023 Trenton Acevedo [facility] 4 13:27:01 Hyperten jessica screenin g Completed 152/82 at new OB visit, normal BP at home x2 weeks Trenton Acevedo [facility], [facility] 4 15:31:29 Nicotine dependen ce 41346890 Completed vaping, discusse d cessatio n [facility] 4 15:31:29 Placenta circumva llata 7374528 Completed serial growth [facility] 4 15:31:29 Marginal insertio n of umbilica l cord 73679743 Completed serial growth Trenton Acevedo [facility], [facility] 4 15:31:29 Marginal insertio n of umbilica l cord 38827263 Completed 09/18/2023 serial growth JACQUELINE KHALIL MD [address], [place], [address], [facility] 4 14:14:10 Placenta circumva llata 1600600 Completed 09/18/2023 serial growth JACQUELINE KHALIL MD [address], [place], [address], [facility] 4 14:14:13 Marta traore user [id number] Completed +UDS Trenton mcintosh, [facility] 4 15:31:29 Inguinal hernia 588072347 Completed Trenton mcintosh, [facility] 4 15:31:29 Obesity 672925510 Completed BMI 38 - 37 wk ante testing Trenton Acevedo [facility], [facility] 4 15:31:29 COVID-19 318823116 Completed 2022 ASA & serial growth [facility] 4 15:31:29 growth restrict ion 43434145 Completed serial growth, weekly antenata l testing and UADs Trneton Acevedo [facility] 4 15:31:29 Problem Notes None recorded. Procedures Surgical History Date Name Laterality Status Provider Name and Address Organization Details Recorded Time 4 IUD Insertion completed BEBETO De Los Santos [address], [place], [address], [facility] 11/06/2023 14:24:52 3 section completed Leyla Morgan [facility] 12/31/2023 09:57:53 3 Control Implant Removal completed BEBETO Macdonald- [address], [place], [address], [facility] 07/22/2022 13:01:34 5 hernia repair completed Renuka Maravilla [facility] 06/05/2023 11:26:57 Imaging Results Imaging Date Name Status LastModified by Organization Details LastModified Time 12/05/2023 US, transvaginal completed [email or web address] James [facility] [address], [place], [address], 12/05/2023 12:23:29 12/05/2023 US, transvaginal completed [email or web address] [address], [place], [address], 12/06/2023 00:56:33 Procedure Notes None recorded. Medical Equipment None Reported. Allergies No known drug allergies Medications Name Sig Start Date Stop Date Status Note LastModified by Organization Details LastModified Time amoxicill in 500 mg capsule TAKE 1 CAPSULE BY MOUTH EVERY 8 HOURS UNTIL GONE 07/22 completed Not Available Not Available Not Available Mirena 21 mcg/24 hr (up to 8 years) 52 mg intrauter ine device Take 1 device by intraute rine route. 2023 active Not Available Not Available Not Avai lable prednison e 10 mg tablet TAKE 4 TABS DAILY X3 DAYS,3TA BS DAILY X2 DAYS,2 TABS DAILY X1 DAY,THEN 1 TAB X1 DAY.IN AM WITH FOOD 07/22 completed Not Available Not Available Not Available azithromy carrie 250 mg tablet TAKE 2 TABLETS BY MOUTH TODAY, THEN TAKE 1 TABLET DAILY FOR 4 DAYS 07/22 completed Not Available Not Available Not Available valacyclo vir 1 gram tablet TAKE 1 TABLET BY MOUTH EVERY 12 HOURS FOR 7 DAYS active Not Available Not Available No t Available hydrocodo ne 5 mg-acetam inophen 325 mg tablet TAKE 1 TABLET BY MOUTH EVERY 3 HOURS NEEDED FOR BREAKTHR OUGH PAIN RATED 4-6 10/30 completed Not Available Not Available Not Available prednison e 20 mg tablet TAKE 2 TABLETS BY MOUTH DAILY FOR 5 DAYS 07/22 completed Not Available Not Available Not Available clotrimaz ole 1 % vaginal cream PLEASE SEE ATTACHED FOR DETAILED DIRECTIO NS active Not Available Not Available No t Available oxycodone -acetamin ophen 5 mg-325 mg tablet TAKE 1 TABLET BY MOUTH EVERY 4 HOURS NEEDED FOR PAIN 07/22 completed Not Available Not Available Not Available lorazepam 0.5 mg tablet TAKE 1 TABLET BY MOUTH THREE TIMES A DAY NEEDED 02/27 completed Not Available Not Available Not Available benzonata te 100 mg capsule TAKE 1 CAPSULE BY MOUTH EVERY 8 HOURS NEEDED 07/22 completed Not Available Not Available Not Available Cipro 500 mg tablet Take 1 tablet every 12 hours by oral route. 07/22 completed Not Available Not Available Not Available docusate sodium 100 mg capsule TAKE 1 CAPSULE BY MOUTH TWICE A DAY 10/30 completed Not Available Not Available Not Available lorazepam 1 mg tablet TAKE 1 TABLET BY MOUTH ONCE BEFORE DENTAL VISIT 02/27 completed Not Available Not Available Not Available ibuprofen 600 mg tablet TAKE 1 TABLET BY MOUTH EVERY 6 HOURS 10/30 completed Not Available Not Available Not Available albuterol sulfate HFA 90 mcg/actua tion aerosol inhaler INHALE 1-2 PUFFS BY MOUTH EVERY 4-6 HOURS NEEDED 02/02 completed Not Available Not Available Not Available cefdinir 300 mg capsule TAKE 1 CAPSULE BY MOUTH EVERY 12 HOURS 07/22 completed Not Available Not Available Not Available sertralin e 50 mg tablet TAKE 1 TABLET BY MOUTH EVERY DAY 02/27 completed Not Available Not Available Not Available metoclopr amide 10 mg tablet TAKE 1 TAB EVERY 6 HRS X3DAYS,T HEN EVERY 8 HRS X3 DAYS,THE N EVERY 12 HRS X3 DAYS THEN 1 DAILY X3DAYS 10/30 completed Not Available Not Available Not Available amoxicill in 875 mg-potass ium clavulana te 125 mg tablet TAKE 1 TABLET BY MOUTH TWICE A DAY 02/02 completed Not Available Not Available Not Available azithromy carrie 500 mg tablet TAKE 1 TABLET BY MOUTH ONCE ON DAY 1 OF THERAPY 07/22 completed Not Available Not Available Not Available 10/30 completed Not Available Not Available Not Available Nexplanon 68 mg subdermal implant as directed 07/22 completed Prescrib chay Temple e: No Locat ion: [facility] odify By: [email or web address] z Encoun ter DateTime : 07/19/19 11:15:00 AM Not Available Not Available Not Available Aurovela Fe 1-20 (28) 1 mg-20 mcg (21)/75 mg (7) tablet TAKE 1 TABLET BY MOUTH EVERY DAY 2023 active Not Available Not Available Not Avai lable ID NOW COVID-19 Test Kit TEST DIRECTED TODAY 07/22 completed Not Available Not Available Not Available Vitals Date Recorded Body height Body mass index (BMI) Percentile per age and sex Body mass index (BMI) Body weight Systolic blood pressure Diastolic blood pressure Provider Name and Address Organization Details Last Updated DateTime 4 153.04 cm 99 % 42.2 kg/m2 74252.1 4 g 155 mm[Hg] 85 mm[Hg] Iwona Mikel [facility] 4 14:45:39 Date Recorded Body height Body mass index (BMI) Body mass index (BMI) Percentile per age and sex Body weight Systolic blood pressure Diastolic blood pressure Provider Name and Address Organization Details Last Updated DateTime 4 153.04 cm 42.6 kg/m2 99 % 50106.3 2 g 126 mm[Hg] 80 mm[Hg] [facility] 4 13:48:04 Date Recorded Body height Body mass index (BMI) Percentile per age and sex Body mass index (BMI) Body weight Systolic blood pressure Diastolic blood pressure Provider Name and Address Organization Details Last Updated DateTime 4 153.04 cm 99 % 43.6 kg/m2 485941. 28 g 131 mm[Hg] 81 mm[Hg] Jo Ann Pizarro [facility] 4 12:58:21 Date Recorded Body height Body mass index (BMI) Body mass index (BMI) Percentile per age and sex Body weight Systolic blood pressure Diastolic blood pressure Provider Name and Address Organization Details Last Updated DateTime 4 153.04 cm 42.6 kg/m2 99 % 90043.3 2 g 132 mm[Hg] 84 mm[Hg] [facility] 4 09:55:55 Social History Question Answer Notes LastModified by Organizat ion Details LastModified Time Tobacco Smoking Status Never Smoker Renuka [email or web address] [facility] 06/05/2023 11:26:02 What Is Your Level Of Alcohol Consumption? None [email or web address] Information not available 06/21/2020 If You Are , What Was Your Level Of Alcohol Consumption Prior To ? None [email or web address] Information not available 06/05/2023 Are You Blind Or Do You Have Difficulty Seeing? No Information n ot available 07/22/2022 What Is Your Level Of Caffeine Consumption? Occasional [email or web address] Information not available 06/21/2020 How Much Tobacco Do You Chew? None [email or web address] Information not available 06/05/2023 In The 14 Days Before Symptom Onset, Have You Had Close Contact With A Laboratory-confirm ed COVID-19 While That Case Was Ill? No [email or web address] Information n ot available 06/05/2023 In The 14 Days Before Symptom Onset, Have You Had Close Contact With A Person Who Is Under Investigation For COVID-19 While That Person Was Ill? No [email or web address] Information not available 06/05/2023 Have You Been To An Area Known To Be High Risk For COVID-19? No [email or web address] Information not available 06/05/2023 Are You Deaf Or Do You Have Serious Difficulty Hearing? No Information not available 07/22/2022 What Type Of Diet Are You Following? REGULAR Information n ot available 07/22/2022 What Is The Highest Grade Or Level Of School You Have Completed Or The Highest Degree You Have Received? 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 No [email or web address] Information not available 06/05/2023 Do You Use Protection During Sex? No Information not available 06/05/2023 Do You Use Your Seat Belt Or Car Seat Routinely? Yes [email or web address] Information not available 06/05/2023 Do You Have Smoke And Carbon Monoxide Detectors In Your Home? Yes [email or web address] Information not available 06/05/2023 How Much Tobacco Do You Smoke? No [email or web address] Information not available 06/05/2023 Do You Feel Stressed (tense, Restless, Nervous, Or Anxious, Or Unable To Sleep At Night)? [id number] [email or web address] Information not available 06/05/2023 Do You Use Any Illicit Or Recreational Drugs? No Information not available 06/21/2020 Do You Use Sunscreen Routinely? No [email or web address] Information not available 06/05/2023 Has Tobacco Cessation Counseling Been Provided? No Information not available 06/05/2023 Do You Or Have You Ever Used Any Other Forms Of Tobacco Or Nicotine? No [email or web address] Information not available 06/05/2023 Sex: Unknown Functional Status Question Answer Note LastModified by Organizat ion Details LastModified Time Do you have difficulty walking or climbing stairs? No [email or web address] Information not available 06/05/2023 Are you able to walk? [email or web address] Information not available 07/22/2022 Are you able to care for yourself? Yes [email or web address] Information not available 06/05/2023 Do you have difficulty dressing or bathing? No [email or web address] Information not available 06/05/2023 What is your exercise level? Occasional [email or web address] Information not available 06/21/2020 Mental Status None recorded. Family History Relationship Description Onset Age of this Age Resolved Age Notes LastModified by Organization Details LastModified Time Maternal Grandmother Malignant tumor of breast [email or web address] Not available 2022 12:53:29 Maternal Grandmother Hypertensive disorder [email or web address] Not available 2022 12:53:29 Maternal Grandfather Hypertensive disorder [email or web address] Not available 2022 12:53:29 Father Seizure disorder [email or web address] Not available 2023 15:24:24 Notes:Father: Seizure disord er Maternal grandfather: Hypertension Maternal grandmother: Cancer, breast, Hypertension Medical History Condition Response Allergies (Food, seasonal, environmental ) N Other N Breast Cancer N Drug/Latex Allergies/Reactions N Blood Transfusion N Dermatologic Disorders N Lung Disease N Defects or Inherited Disease N Breast Problem N Gestational Diabetes N Hematologic disorders N Anesthesia Complications N History of STI Y Deep Vein Thrombosis N Polycystic ovary syndrome N Anxiety Disorder N Autoimmune disease N Arthritis N Infertility N Polyps N Acid Reflux (GERD) N History of abnormal pap N Cancer N Stroke N Varicosities N Neurologic/Epilepsy N Endometriosis N High Cholesterol N Headaches N Fibromyalgia N Kidney Disease N Heart Problems N Kidney or Bladder Problems N Thyroid Problems N GI Problems Y Eating Disorder N Anemia N Art (IVF or FET) N Psychiatric Illness N Ovarian Cancer N Diabetes N Pulmonary (TB, Asthma) N Hepatitis/Liver Disease N Eczema N Urinary Tract Infection N Abuse/Domestic Violence N Asthma N Trauma/Violence N Depression/ depression N Heart Disease N Pre-Eclampsia N Hypertension N Osteoporosis N Thrombophilias N Gynecological History Statement/Question Response Date of Last Mammogram Flow Light Date of LMP N Was last menstrual period normal Y STIs/STDs Y Date of Last Colonoscopy Desired Control Method BCPs Abnormal Pap N On BCP's at Conception? Y HPV Vaccine Y Colposcopy Duration of Flow (days) 5 Current Control Method IUD Age at First Child 18 Sexually Active? Y Menses Monthly Y Date of DEXA bone scan Age of first menstrual cycle 9 Date of Last Pap Smear Sexual Problems? Y LMP Definite N Obstetrics History GPAL:G 1 P 1 0 0 1 Type Value Full Term 1 Living 1 Total 1 Past Encounters Encounter ID Performer Location Encounter Start Date Encounter Closed Date Diagnosis/Indication Diagnosis SNOMED-CT Code Diagnosis ICD10 Code [id number] Livier Duff [facility] [address],[place] [address] 06/21/2020 15:50:21 06/25/2020 16:02:35 Contraception care management 770558470 Z30.9 [id number] Thanh Viramontes MD [place] [address],[place] [address] 02/24/2021 17:37:49 02/25/2021 10:11:08 Pain in pelvis 83048720 R10.2 [id number] Edith Ferreira [place] [address],[place] [address] 02/25/2021 09:07:20 02/25/2021 14:00:59 Pain in pelvis 17989089 R10.2 [id number] Livier Duff [facility] [address],[place] [address] 07/22/2022 12:11:01 07/24/2022 15:28:30 Removal of subcutaneous contraceptive 091922373 Z30.46 [id number] Edith Ferreira [place] [address],[place] [address] 02/01/2023 11:01:05 02/01/2023 15:34:33 screening 739205076 Z36.82 [id number] JACQUELINE KHALIL MD [place] [address],[place] [address] 02/02/2023 11:28:23 02/02/2023 12:29:38 test positive 412636784 Z32.01 screening 2437 67080 Z36.0 Genetic in vestigation procedure 16338316 Z31.430 [id number] JACQUELINE KHALIL MD [place] [address],[place] [address] 02/27/2023 10:17:14 02/27/2023 11:47:16 Routine care 066273836 Z34.[id number] [place] [address],[place] [address] 03/26/2023 11:15:08 03/26/2023 13:37:21 screening for malformation 761979093 Z36.3 Z3A.19 [id number] JACQUELINE KHALIL MD [place] [address],[place] [address] 03/26/2023 11:18:32 03/26/2023 14:16:46 Routine care 804005607 Z34.92 Marginal i nsertion of umbilical cord 05677718 O43.129 Placenta circumvallata 5415366 O43.119 Gestation period, 19 weeks 85981086 Z3A.19 [id number] Danahaley Medina [place] [address],[place] [address] 04/24/2023 11:48:45 04/24/2023 12:55:32 screening 063298820 Z36.2 O43.112 O43.102 Z3A.23 [id number] JACQUELINE KHALIL MD [place] [address],[place] [address] 04/24/2023 11:52:04 04/25/2023 14:01:51 Gestation period, 23 weeks 81069895 Z3A.23 Placenta circumvallata 2541301 O43.119 Marginal i nsertion of umbilical cord 60462912 O43.[id number] [place] [address],[place] [address] 05/22/2023 11:18:14 05/22/2023 13:38:50 Marginal insertion of umbilical cord 52331682 O43.112 O43.122 Z3A.27 [id number] JACQUELINE KHALIL MD [place] [address],[place] [address] 05/22/2023 11:18:39 05/22/2023 12:41:09 Marginal insertion of umbilical cord 20708984 O43.129 Placenta circumvallata 5123530 O43.119 Gestation period, 27 weeks 51160111 Z3A.27 [id number] JACQUELINE KHALIL MD [place] [address],[place] [address] 06/05/2023 10:50:58 06/05/2023 12:11:55 Breech presentation 5924241 O32.1XX9 Gestation period, 29 weeks 24219704 Z3A.29 Marginal i nsertion of umbilical cord 80741539 O43.112 O43.122 Z3A.27 Placenta circumvallata 0948888 O43.119 [id number] Dana Medina [place] [address],[place] [address] 06/19/2023 11:49:58 06/19/2023 13:29:24 Placenta circumvallata 6808969 O43.113 O43.103 O35.3XX0 O36.5930 Z3A.31 [id number] JACQUELINE KHALIL MD [facility] [address],[place] [address] 06/19/2023 11:50:30 06/21/2023 13:13:40 Marginal insertion of umbilical cord 29199299 O43.112 O43.122 Z3A.27 Placenta circumvallata 7763452 O43.113 O43.103 O35.3XX0 O36.5930 Z3A.31 grow th restriction 81743002 O36.5999 Gestation period, 31 weeks 03805988 Z3A.31 [id number] Falguni Ball [facility] [address],[place] [address] 06/26/2023 15:23:55 06/26/2023 17:45:26 growth restriction 30534931 O36.5999 [id number] [facility] [address],[place] [address] 06/26/2023 15:25:10 06/26/2023 17:01:48 Small for gestational age fetus 293679312 O36.5930 O99.210 O43.123 O43.113 Z86.16 Z3A.32 [id number] JACQUELINE KHALIL MD [facility] [address],[place] [address] 06/26/2023 15:26:22 06/29/2023 10:04:31 Marginal insertion of umbilical cord 88358449 O43.123 Placenta circumvallata 7733427 O43.113 grow th restriction 67711723 O36.5999 Gestation period, 32 weeks 5862077 Z3A.32 [id number] JACQUELINE KHALIL MD [facility] [address],[place] [address] 1 07/03/2023 09:22:19 07/03/2023 10:09:11 Marginal insertion of umbilical cord 98254097 O43.123 Placenta circumvallata 5370058 O43.113 grow th restriction 39146813 O36.5999 Gestation period, 33 weeks 51691337 Z3A.33 [id number] Dali [facility] [address],[place] [address] 07/03/2023 09:22:49 07/03/2023 10:23:18 Small for gestational age fetus 293729574 O36.5930 O99.210 O43.123 O43.113 Z86.16 Z3A.33 [id number] Iwona Mikel [facility] [address],[place] [address] 07/03/2023 09:23:22 07/03/2023 11:01:35 growth restriction 39909702 O36.5999 [id number] [facility] [address],[place] [address] 1 07/10/2023 10:25:32 07/10/2023 12:05:40 Small for gestational age fetus 263655294 O36.5930 O99.210 O43.123 O43.113 Z86.16 Z3A.34 [id number] Falguni Ball [facility] [address],[place] [address] 1 07/10/2023 10:26:36 07/10/2023 12:05:56 growth restriction 38662610 O36.5999 [id number] JACQUELINE KHALIL MD [facility] [address],[place] [address] 07/10/2023 10:26:53 07/12/2023 11:13:47 growth restriction 05423540 O36.5999 Gestation period, 34 weeks 56194309 Z3A.34 [id number] [facility] [address],[place] [address] 07/17/2023 10:57:04 07/17/2023 14:12:43 Small for gestational age fetus 971066428 O36.5930 O99.210 O43.123 O43.113 Z86.16 Z3A.35 [id number] Elaina Lucas [facility] [address],[place] [address] 07/17/2023 10:57:27 07/17/2023 13:07:40 Marginal insertion of umbilical cord 18967585 O43.123 O36.5999 Z3A.35 [id number] JACQUELINE KHALIL MD [facility] [address],[place] [address] 07/17/2023 10:57:48 07/17/2023 16:40:34 Marginal insertion of umbilical cord 10288412 O43.123 O36.5999 Z3A.35 Placenta circumvallata 7860055 O43.113 Gestation period, 35 weeks 02935195 Z3A.35 [id number] Thanh Viramontes MD [facility] [address],[place] [address] 07/24/2023 10:24:53 07/24/2023 11:07:01 Small for gestational age fetus 574908316 O36.5930 O99.210 O43.123 O43.113 Z86.16 Z3A.36 [id number] Iwona Morin [facility] [address],[place] [address] 1 07/24/2023 10:25:12 07/24/2023 11:52:45 growth restriction 81373077 O36.5999 [id number] JACQUELINE KHALIL MD [facility] [address],[place] [address] 07/24/2023 11:22:26 07/24/2023 11:59:56 Placenta circumvallata 6900500 O43.113 Marginal i nsertion of umbilical cord 37866901 O43.123 O36.5999 Z3A.35 grow th restriction 37918351 O36.5999 Gestation period, 36 weeks 44253417 Z3A.36 [id number] [facility] [address],[place] [address] 07/31/2023 10:27:04 07/31/2023 11:11:59 Small for gestational age fetus 767627156 O36.5930 O99.210 O43.123 O43.113 Z86.16 Z3A.37 [id number] Elaina Lucas [facility] [address],[place] [address] 1 07/31/2023 10:27:28 07/31/2023 13:16:48 39681861 Z33.1 grow th restriction 48059933 O36.5999 Z3A.37 [id number] JACQUELINE KHALIL MD [facility] [address],[place] [address] 1 07/31/2023 10:27:46 08/06/2023 23:03:39 [id number] Dali [facility] [address],[place] [address] 08/07/2023 10:27:27 08/07/2023 11:08:00 Small for gestational age fetus 957511783 O36.5930 O99.210 O43.123 O43.113 Z86.16 Z3A.37 Z3A.38 [id number] Elaina Lucas claribel [facility] [address],[place] [address] 08/07/2023 10:27:46 08/07/2023 12:17:41 [id number] Z33.1 grow th restriction 83111684 O36.5999 Z3A.38 [id number] JACQUELINE KHALIL MD [facility] [address],[place] [address] 08/07/2023 10:28:01 08/09/2023 13:35:56 Marginal insertion of umbilical cord 53432120 O43.123 O36.5999 Z3A.35 Placenta circumvallata 7175518 O43.113 Gestation period, 38 weeks 28485440 Z3A.38 [id number] [facility] [address],[place] [address] 08/14/2023 09:27:33 08/14/2023 11:01:32 Small for gestational age fetus 245212827 O36.5930 O99.210 O43.123 O43.113 Z86.16 Z3A.39 [id number] JACQUELINE KHALIL MD [facility] [address],[place] [address] 08/14/2023 09:28:28 08/15/2023 09:31:27 Marginal insertion of umbilical cord 34248109 O43.123 O36.5999 Z3A.35 Placenta circumvallata 5308314 O43.113 Gestation period, 39 weeks 34999376 Z3A.39 [id number] Iwona [facility] [address],[place] [address] 08/14/2023 09:28:44 08/14/2023 11:01:00 growth restriction 98084889 O36.5999 Z3A.38 [id number] JACQUELINE KHALIL MD [facility] [address],[place] [address] 08/28/2023 18:07:42 08/29/2023 09:28:49 care 400710736 Z39.2 management 278 390529 Z39.1 [id number] Elaina Lucas [facility] [address],[place] [address] 1 08/29/2023 12:58:29 08/30/2023 10:55:31 management 059135918 Z39.1 [id number] JACQUELINE KHALIL MD [facility] [address],[place] [address] 09/18/2023 13:32:51 09/18/2023 15:04:03 care 665713047 Z39.2 management 278 672152 Z39.1 [id number] Georgia Fernández NA [facility] [address],[place] [address] 10/31/2023 14:40:58 10/31/2023 16:07:33 Contraception care management 113279923 Z30.9 [id number] Georgia Fernández NA [facility] [address],[place] [address] 11/06/2023 13:44:40 11/06/2023 14:29:32 Insertion of intrauterine contraceptive device 68856310 Z30.430 Venereal d isease screening 585262577 Z11.3 [id number] [facility] [address],[place] [address] 12/05/2023 11:47:27 12/05/2023 12:18:55 Abnormal uterine bleeding 7807824087 9100 N93.9 [id number] JACQUELINE KHALIL MD [facility] [address],[place] [address] 12/05/2023 12:36:53 12/05/2023 14:13:22 Irregular intermenstrual bleeding 83870660 N92.1 [id number] Georgia Fernández NA [facility] [address],[place] [address] 12/31/2023 09:47:07 12/31/2023 10:55:44 Genital herpes simplex 93957808 A60.9 Venereal d isease screening 215377507 Z11.3 Health Concerns Section Related Observation LastModified by Organization Detai ls LastModified Time None Recorded Concern Status LastModified by Organization Details LastModified Time None Recorded Advance Directives Directive None Recorded Payers Encounter Date Sequence Insurance Name Policy Number Policy Sweeney Covered Member ID Sweeney Member ID Guarantor Name 10/31/2023 1 [facility] [id number] Angeles R West [id number] [facility] 10/31/2023 2 [place] [facility] Ruth Ann R West [id number] [facility] 11/06/2023 1 [facility] [id number] Angeles R West [id number] [facility] 11/06/2023 2 [place] [facility] Ruth Ann R West [id number] [facility] 12/05/2023 1 [facility] ([facility] [id number] Angeles R West [id number] [facility] 12/05/2023 2 [place] [facility] Ruth Ann R [place] [id number] [facility] 12/05/2023 1 [facility] ([facility] [id number] Angeles R West [id number] [facility] 12/05/2023 2 [place] [facility] Ruth Ann R [place] [id number] [facility] 12/31/2023 1 [facility] [id number] Angeles R West [id number] [facility] 12/31/2023 2 [place] [facility] R [place] [id number] [facility] Notes Date Note Type Note Provider Name and Address Organization Details Recorded Time 10/31/2023 text/html 18yo [id number] ents for BC consults/p primary c/s 08/18/2023SA with male partner, condoms for BClast IC /3recently stopped BF, periods have been irregular sinceint in Mirena IUD BEBETO De Los Santos [address], [place], [address], [facility] 10/31/2023 16:00:04 11/06/2023 text/html Patient presents for IUD insertion.has abstained from IC x 2 weeks BEBETO De Los Santos [address], [place], [address], [facility] 11/06/2023 14:26:37 12/05/2023 text/html Patient presents for IUD check. Had IUD placed 5 weeks ago, still having heavy bleeding. Changing pads every 1-3 hours. Would like to start using tampons. Stopped a month prior to IUD insertion. No dizziness, lightheadedness or palpitations. No pelvic pain or cramping. JACQUELINE KHALIL MD [address], [place], [address], [facility] 12/05/2023 14:13:13 12/31/2023 text/html 18yopresents for evaluation of vulvar lesionsblister like lesions throughout vulva, started about 1 week agotender to touchimproving over the last few daysSA with new partner recently, uses condomshas Mirena IUD BEBETO De Los Santos [address], [place], [address], [facility] 12/31/2023 10:48:13 OBGyn Episode Ob Episode Information Episode Created Date Number of Fetuses Patient Bloodtype Patient rh Status Prepregnancy Weight lbs Domestic Partner Domestic Partner Phone Father Name Sde Status 02/28/20 23 1 A Positive 196 Luiz CLOSED Fetus Data First Name Last Name Admitted to NICU Weight (g) Sex Living Outcome Pediatric Complications Fetus ID Race Codes Race Delivery Type 3401.94 F true Full Term arrest of dilation 08544 Primary Problems Problem Notes Problem Name Start Date End Date Resolution Snomed Code Not e Placenta circumvallata 8298508 serial growth Marginal insertion of umbilical cord 40296375 serial growth Inguinal hernia 675992246 Obesity 979654214 BMI 38 - 3 7 wk ante testing Marijuana user [id number] +UDS Nicotine dependence 32981273 vaping, discussed cessation growth restriction SELFRESOLVED 98539218 serial growth, weekly testing and UADs COVID-19 04/04/2023 [id number] ASA & ser ial growth Hypertension screening 3977173 01 152/82 at new OB visit, normal BP at home x2 weeks Zoila Calculation ZOILA Calculation Method Initial Zoila Date Initial Exam Date Initial Exam Provider Initial Ultrasound Date Last Menstrual Period Date Ultra Sound Weeks Gestation Conception by IVF Embryo Age at Transfer Date of Transfer 08/18/19 22 02/28/20 23 02/01/2023 11 Eighteen To Twenty Week Zoila Update Ultra Sound Date Fundal Height At Umbil Quickening Date Ultra Sound Latest Weeks Gestation Final Zoila Confirmed By Final Zoila Confirmed Date Final Zoila Date Ultra Sound Latest Days Gestation 0 [email or web address] 03/26/2023 08/18/19 24 0 Pre- Flowsheet Flowsheet Date 02/27/2023 Velasco Score Blood Edema Fundus Height Fundus Units Glucose Ketones Leukocytes Nitrite Labor Signs Protein Cervic Dilation Cervic Effacement Cervic Station none Type Weight in lbs Pre/Post Dialysis Refused Weight 196.218221522589 BP Diastolic BP Location Tested BP Systolic BP Type 85 149 82 152 Fetus Heart Rate Present A 142 Fetus Movement A Yes Comments Presents to establish OB car e. No nausea or vomiting, no ctx, bleeding. BP high, will check at home. low risk NIPT, female. RTC in 4-5 weeks for anatomy scan and visit. Flowsheet Date 03/26/2023 Velasco Score Blood Edema Fundus Height Fundus Units Glucose Ketones Leukocytes Nitrite Labor Signs Protein Cervic Dilation Cervic Effacement Cervic Station Type Weight in lbs Pre/Post Dialysis Refused BP Diastolic BP Location Tested BP Systolic BP Type Fetus Heart Rate Present Fetus Movement Comments Flowsheet Date 03/26/2023 Velasco Score Blood Edema Fundus Height Fundus Units Glucose Ketones Leukocytes Nitrite Labor Signs Protein Cervic Dilation Cervic Effacement Cervic Station 19 Type Weight in lbs Pre/Post Dialysis Refused Weight 200.480172337905 BP Diastolic BP Location Tested BP Systolic BP Type 77 119 Fetus Heart Rate Present A 161 Fetus Movement A Yes Comments No nausea, vomiting. No cont ractions, bleeding. Feeling flutters. Anatomy performed today, incomplete heart views and gender. MCI with circumvallate placenta. Will schedule serial growth YS. Flowsheet Date 04/24/2023 Velasco Score Blood Edema Fundus Height Fundus Units Glucose Ketones Leukocytes Nitrite Labor Signs Protein Cervic Dilation Cervic Effacement Cervic Station Type Weight in lbs Pre/Post Dialysis Refused BP Diastolic BP Location Tested BP Systolic BP Type Fetus Heart Rate Present Fetus Movement Comments Flowsheet Date 04/24/2023 Velasco Score Blood Edema Fundus Height Fundus Units Glucose Ketones Leukocytes Nitrite Labor Signs Protein Cervic Dilation Cervic Effacement Cervic Station Type Weight in lbs Pre/Post Dialysis Refused Weight 202.171948887766 BP Diastolic BP Location Tested BP Systolic BP Type 75 117 Fetus Heart Rate Present A 145 Fetus Movement A Yes Comments Doing well, no issues. Good movement. Growth today, wnl. Continue serial growth for circumvallate placenta. No ctx or bleeding. BP wnl. Flowsheet Date 05/22/2023 Velasco Score Blood Edema Fundus Height Fundus Units Glucose Ketones Leukocytes Nitrite Labor Signs Protein Cervic Dilation Cervic Effacement Cervic Station Type Weight in lbs Pre/Post Dialysis Refused BP Diastolic BP Location Tested BP Systolic BP Type Fetus Heart Rate Present Fetus Movement Comments Flowsheet Date 05/22/2023 Velasco Score Blood Edema Fundus Height Fundus Units Glucose Ketones Leukocytes Nitrite Labor Signs Protein Cervic Dilation Cervic Effacement Cervic Station Type Weight in lbs Pre/Post Dialysis Refused Weight 203.441714869101 BP Diastolic BP Location Tested BP Systolic BP Type 77 120 Fetus Heart Rate Present A 136 Fetus Movement A Yes Comments Had some congestion the last few days, feeling better now. Good movement. Having some vulvar pruritis, will send Diflucan. Discussed tdap vaccine and 28 week labs. EFW 19%, breech, normal OH. Growth in 4 weeks for MCI/circumvallate placenta. Still vaping, discussed cessation. Flowsheet Date 06/05/2023 Velasco Score Blood Edema Fundus Height Fundus Units Glucose Ketones Leukocytes Nitrite Labor Signs Protein Cervic Dilation Cervic Effacement Cervic Station neg none none trace Type Weight in lbs Pre/Post Dialysis Refused Weight 205.602072284299 BP Diastolic BP Location Tested BP Systolic BP Type 76 124 Fetus Heart Rate Present A 130 Fetus Movement A Yes Comments Feeling good, normal m ovement. No ctx, VB, LOF. Needs tdap vaccine. Passed 1h GCT, normal H/H. Repeat growth next visit. Flowsheet Date 06/19/2023 Velasco Score Blood Edema Fundus Height Fundus Units Glucose Ketones Leukocytes Nitrite Labor Signs Protein Cervic Dilation Cervic Effacement Cervic Station Type Weight in lbs Pre/Post Dialysis Refused BP Diastolic BP Location Tested BP Systolic BP Type Fetus Heart Rate Present Fetus Movement Comments Flowsheet Date 06/19/2023 Velasco Score Blood Edema Fundus Height Fundus Units Glucose Ketones Leukocytes Nitrite Labor Signs Protein Cervic Dilation Cervic Effacement Cervic Station Type Weight in lbs Pre/Post Dialysis Refused Weight 206.3184256145 BP Diastolic BP Location Tested BP Systolic BP Type 72 125 Fetus Heart Rate Present A 145 Fetus Movement A Yes Comments Good movement. No blee ding, LOF, ctx. Received tdap vaccine. Growth today demonstrates EFW 9.7%, normal UADs. BPP 12/26. Discussed diagnosis of FGR, recommend weekly testing and UADs if they remain normal. Would recommend delivery between 38.0 and 39.0 weeks if UADs wnl. Continue serial growth US. Flowsheet Date 06/26/2023 Velasco Score Blood Edema Fundus Height Fundus Units Glucose Ketones Leukocytes Nitrite Labor Signs Protein Cervic Dilation Cervic Effacement Cervic Station Type Weight in lbs Pre/Post Dialysis Refused BP Diastolic BP Location Tested BP Systolic BP Type Fetus Heart Rate Present Fetus Movement Comments Flowsheet Date 06/26/2023 Velasco Score Blood Edema Fundus Height Fundus Units Glucose Ketones Leukocytes Nitrite Labor Signs Protein Cervic Dilation Cervic Effacement Cervic Station Type Weight in lbs Pre/Post Dialysis Refused BP Diastolic BP Location Tested BP Systolic BP Type Fetus Heart Rate Present Fetus Movement Comments Flowsheet Date 06/26/2023 Velasco Score Blood Edema Fundus Height Fundus Units Glucose Ketones Leukocytes Nitrite Labor Signs Protein Cervic Dilation Cervic Effacement Cervic Station Type Weight in lbs Pre/Post Dialysis Refused Weight 207.163238959330 BP Diastolic BP Location Tested BP Systolic BP Type 83 135 Fetus Heart Rate Present A 150 Fetus Movement A Yes Comments Maternity belt fitted for pt , strong support size 2XL, sent to [facility]. Pt given their number to call and complete order. Pt verbalized understanding. [email or web address], RNFeeling well, good movement. No cramping or bleeding. Pt's mom present, discussed again plan for weekly monitoring 2/2 FGR of unknown etiology (placental vs maternal vs constitutional). Discussed recommendation for delivery between 38 to 39 weeks if UADs remain normal, however will continue to discuss based on future testing. Flowsheet Date 07/03/2023 Velasco Score Blood Edema Fundus Height Fundus Units Glucose Ketones Leukocytes Nitrite Labor Signs Protein Cervic Dilation Cervic Effacement Cervic Station none none neg Type Weight in lbs Pre/Post Dialysis Refused Weight 210.346431092636 BP Diastolic BP Location Tested BP Systolic BP Type 78 121 Fetus Heart Rate Present Fetus Movement A Yes Comments Good movement. No cram ping or bleeding. Needs to schedule preadmission appointment. NST/BPP/UADs to follow. Will discuss delivery timing further after next growth US. Flowsheet Date 07/03/2023 Velasco Score Blood Edema Fundus Height Fundus Units Glucose Ketones Leukocytes Nitrite Labor Signs Protein Cervic Dilation Cervic Effacement Cervic Station Type Weight in lbs Pre/Post Dialysis Refused BP Diastolic BP Location Tested BP Systolic BP Type Fetus Heart Rate Present Fetus Movement Comments Flowsheet Date 07/03/2023 Velasco Score Blood Edema Fundus Height Fundus Units Glucose Ketones Leukocytes Nitrite Labor Signs Protein Cervic Dilation Cervic Effacement Cervic Station Type Weight in lbs Pre/Post Dialysis Refused BP Diastolic BP Location Tested BP Systolic BP Type Fetus Heart Rate Present A 150 Fetus Movement A Yes Comments Doing ok, baby active. No ct x, LOF, VB. EFW 14% today! BPP 02/27. Will continue weekly testing, but do not feel 38 week induction is necessary at this time. Will continue to monitor BPPs for wellbeing. Still waiting on maternity belt. Flowsheet Date 07/10/2023 Velasco Score Blood Edema Fundus Height Fundus Units Glucose Ketones Leukocytes Nitrite Labor Signs Protein Cervic Dilation Cervic Effacement Cervic Station Type Weight in lbs Pre/Post Dialysis Refused BP Diastolic BP Location Tested BP Systolic BP Type Fetus Heart Rate Present Fetus Movement Comments Flowsheet Date 07/10/2023 Velasco Score Blood Edema Fundus Height Fundus Units Glucose Ketones Leukocytes Nitrite Labor Signs Protein Cervic Dilation Cervic Effacement Cervic Station Type Weight in lbs Pre/Post Dialysis Refused BP Diastolic BP Location Tested BP Systolic BP Type Fetus Heart Rate Present Fetus Movement Comments Flowsheet Date 07/10/2023 Velasco Score Blood Edema Fundus Height Fundus Units Glucose Ketones Leukocytes Nitrite Labor Signs Protein Cervic Dilation Cervic Effacement Cervic Station Type Weight in lbs Pre/Post Dialysis Refused Weight 209.851518924882 BP Diastolic BP Location Tested BP Systolic BP Type 64 125 Fetus Heart Rate Present Fetus Movement A Yes Comments Doing ok, baby active. No ct x, LOF, VB. EFW 14% today! BPP 10/10. Will continue weekly testing, but do not feel 38 week induction is necessary at this time. Will continue to monitor BPPs for wellbeing. Still waiting on maternity belt. Flowsheet Date 07/17/2023 Velasco Score Blood Edema Fundus Height Fundus Units Glucose Ketones Leukocytes Nitrite Labor Signs Protein Cervic Dilation Cervic Effacement Cervic Station Type Weight in lbs Pre/Post Dialysis Refused BP Diastolic BP Location Tested BP Systolic BP Type Fetus Heart Rate Present Fetus Movement Comments Flowsheet Date 07/17/2023 Velsaco Score Blood Edema Fundus Height Fundus Units Glucose Ketones Leukocytes Nitrite Labor Signs Protein Cervic Dilation Cervic Effacement Cervic Station Type Weight in lbs Pre/Post Dialysis Refused BP Diastolic BP Location Tested BP Systolic BP Type Fetus Heart Rate Present Fetus Movement Comments Flowsheet Date 07/17/2023 Velasco Score Blood Edema Fundus Height Fundus Units Glucose Ketones Leukocytes Nitrite Labor Signs Protein Cervic Dilation Cervic Effacement Cervic Station Type Weight in lbs Pre/Post Dialysis Refused Weight 210.186277944858 BP Diastolic BP Location Tested BP Systolic BP Type 82 143 74 113 Fetus Heart Rate Present A 150 Fetus Movement A Yes Comments Good movement. No cram ping or bleeding. BPP 10/10 today. OVerall feeling well. Discussed GBS swab for next visit. RTC 1 week Flowsheet Date 07/24/2023 Velasco Score Blood Edema Fundus Height Fundus Units Glucose Ketones Leukocytes Nitrite Labor Signs Protein Cervic Dilation Cervic Effacement Cervic Station Type Weight in lbs Pre/Post Dialysis Refused BP Diastolic BP Location Tested BP Systolic BP Type Fetus Heart Rate Present Fetus Movement Comments Flowsheet Date 07/24/2023 Velasco Score Blood Edema Fundus Height Fundus Units Glucose Ketones Leukocytes Nitrite Labor Signs Protein Cervic Dilation Cervic Effacement Cervic Station Type Weight in lbs Pre/Post Dialysis Refused BP Diastolic BP Location Tested BP Systolic BP Type Fetus Heart Rate Present Fetus Movement Comments Flowsheet Date 07/24/2023 Velasco Score Blood Edema Fundus Height Fundus Units Glucose Ketones Leukocytes Nitrite Labor Signs Protein Cervic Dilation Cervic Effacement Cervic Station Type Weight in lbs Pre/Post Dialysis Refused Weight 209.291583657143 BP Diastolic BP Location Tested BP Systolic BP Type 72 123 Fetus Heart Rate Present A 145 Fetus Movement A Yes Comments Doing well, baby active. No ctx, LOF, VB. BPP 02/27. UADs wnl. GBS collected today. SVE 0.5cm/50/-3. Discussed labor precautions. RTC 1 week Flowsheet Date 07/31/2023 Velasco Score Blood Edema Fundus Height Fundus Units Glucose Ketones Leukocytes Nitrite Labor Signs Protein Cervic Dilation Cervic Effacement Cervic Station Type Weight in lbs Pre/Post Dialysis Refused BP Diastolic BP Location Tested BP Systolic BP Type Fetus Heart Rate Present Fetus Movement Comments Flowsheet Date 07/31/2023 Velasco Score Blood Edema Fundus Height Fundus Units Glucose Ketones Leukocytes Nitrite Labor Signs Protein Cervic Dilation Cervic Effacement Cervic Station Type Weight in lbs Pre/Post Dialysis Refused BP Diastolic BP Location Tested BP Systolic BP Type Fetus Heart Rate Present Fetus Movement Comments Flowsheet Date 07/31/2023 Velasco Score Blood Edema Fundus Height Fundus Units Glucose Ketones Leukocytes Nitrite Labor Signs Protein Cervic Dilation Cervic Effacement Cervic Station Type Weight in lbs Pre/Post Dialysis Refused Weight 210.785869137247 BP Diastolic BP Location Tested BP Systolic BP Type 83 124 Fetus Heart Rate Present Fetus Movement Comments Dr. Khalil left for L & D an d then went to the OR. Pt offered to wait approximately 30 minutes for OB appt but pt states she has no questions at this time and will keep her 08/07/23 appt and call if she has questions prior to. Pt then asked about scheduling additional appointments and while discussing appointments, pt asked about IOL. Pt states Dr. Khalil informed her due to increased EFW, she no longer needs to be induced at 38 weeks but the pt is unsure if she is able to wait for spontaneous labor. Pt's question regarding IOL vs. spontaneous labor discussed with MM. Per MM, pt informed weekly testing is still recommended but IOL is not necessary as long as testing is reassuring. Pt verbalized understanding and scheduled appointments for 39 and 40 weeks. Pt also asked about movement because NST today was non-reactive and she is concerned. kick counts discussed and pt instructed to call or report to L & D if <10 movements per hour and no improvement with cold water and sugar intake. Pt verbalized understanding. Pt also informed BPP 12/26 is reassuring. Pt reassured. Pt will call with additional questions or concerns. Elaina Lara RN Flowsheet Date 08/07/2023 Velasco Score Blood Edema Fundus Height Fundus Units Glucose Ketones Leukocytes Nitrite Labor Signs Protein Cervic Dilation Cervic Effacement Cervic Station Type Weight in lbs Pre/Post Dialysis Refused BP Diastolic BP Location Tested BP Systolic BP Type Fetus Heart Rate Present Fetus Movement Comments Flowsheet Date 08/07/2023 Velasco Score Blood Edema Fundus Height Fundus Units Glucose Ketones Leukocytes Nitrite Labor Signs Protein Cervic Dilation Cervic Effacement Cervic Station Type Weight in lbs Pre/Post Dialysis Refused BP Diastolic BP Location Tested BP Systolic BP Type Fetus Heart Rate Present Fetus Movement Comments Flowsheet Date 08/07/2023 Velasco Score Blood Edema Fundus Height Fundus Units Glucose Ketones Leukocytes Nitrite Labor Signs Protein Cervic Dilation Cervic Effacement Cervic Station 1cm 50% -3 Type Weight in lbs Pre/Post Dialysis Refused Weight 214.946018431701 BP Diastolic BP Location Tested BP Systolic BP Type 85 139 Fetus Heart Rate Present A 140 Fetus Movement A Yes Comments Doing well, no issues. Good movement. BPP 10. No ctx, LOF, VB. Patient desires to wait for spontaneous labor given normal weight on recent growth US and reassuring testing. Discussed induction if patient reaches postdates, she voices understanding. SVE and membrane sweep performed today. RTC 1 week. Flowsheet Date 08/14/2023 Velasco Score Blood Edema Fundus Height Fundus Units Glucose Ketones Leukocytes Nitrite Labor Signs Protein Cervic Dilation Cervic Effacement Cervic Station Type Weight in lbs Pre/Post Dialysis Refused BP Diastolic BP Location Tested BP Systolic BP Type Fetus Heart Rate Present Fetus Movement Comments Flowsheet Date 08/14/2023 Velasco Score Blood Edema Fundus Height Fundus Units Glucose Ketones Leukocytes Nitrite Labor Signs Protein Cervic Dilation Cervic Effacement Cervic Station none none trace 1cm 50% -3 Type Weight in lbs Pre/Post Dialysis Refused Weight 216.191331332539 BP Diastolic BP Location Tested BP Systolic BP Type 79 133 Fetus Heart Rate Present A 140 Fetus Movement A Yes Comments Good movement. No ctx, LOF, VB. Patient would like elective induction of labor after discussion. BPP 10/10. SVE and membrane sweep performed today. Will schedule induction for 08/15. Flowsheet Date 08/14/2023 Velasco Score Blood Edema Fundus Height Fundus Units Glucose Ketones Leukocytes Nitrite Labor Signs Protein Cervic Dilation Cervic Effacement Cervic Station Type Weight in lbs Pre/Post Dialysis Refused BP Diastolic BP Location Tested BP Systolic BP Type Fetus Heart Rate Present Fetus Movement Comments Menstrual History Last Menstrual Date Menses Monthly On Bcp Conception Prior Menses Frequency Hcg Plus Date Menarche Onset Age Genetic Screening And Infection History Question Response Note Mental Retardation/Autism false Patient's Age Will Be 35 Yea rs Or Older At Estimated Date of Delivery false Thalassemia (Sinhala, Colombian, Mediterranean, Or Background): MCV < 80 false Neural Tube Defect (Meningom yelocele, Spina Bifida, Or Anencephaly) false Congenital Heart Defect false Down Syndrome false Gunnar-Sachs (eg, Denominational, Cajun, Malawian-Slovenian) f alse Molly Disease false Sickle Cell Disease Or Trait () false Hemophilia Or Other Blood Disorders false Muscular Dystrophy false Cystic Fibrosis false Torrance's Chorea false Intellectual Disability/Autism false If Yes, Was Person Tested For Fragile X? false Other Inherited Genetic Or Chromosomal Disorder false Maternal Metabolic Disorder (eg, Type 1 Diabetes , PKU) false Patient Or Baby's Father Had A Child With Defects Not Listed Above false Recurrent Loss, Or A Stillbirth false Medications (including Suppl ements, Vitamins, Herbs, OTC Drugs), Illicit/Recreational Drugs, Alcohol true If Yes, Agent(s) And Strength/Dosage false nicotine usage Any Other Genetic History false Live With Someone With TB Or Exposed To TB false Patient Or Partner Has History Of Genital Herpes false Rash Or Viral Illness Since Last Menstrual Perio d false History Of STD, Gonorrhea, Chlamydia, HPV, Syphi lis false Other Infection History false History of HIV false History of Hepatitis false Prior GBS-infected child false Hemoglobinopathy Or Carrier false Other Structural Defect false Recent Travel History Outside of Country false Delivery Information Delivery Date Delivery Type Labor Anesthesia Weeks Gestation Incision Type Labor Labor Length Hrs Delivered By Post Complications Tubal Sterilization Discharge Date Comments 4 Induce d Regional-Ep idural 40 Low Transvers e false Jacqueline Khalil MD COVID-19, growth restricti on,Hypert ension screening ,Inguinal hernia,Ma rginal insertion of umbilical cord,Alfreda bourgeois user,Kevin cagle dependenc e,Obesity ,Placenta circumval anjel Discharge Information Feeding Method Contraceptive Method Maternal HG B and HCT Levels
--- OUTSIDE RECORDS SUMMARY | 2024-05-07 11:27 | XMS_ITS | Referral Summary ---
Author Organization [facility] Address [address] [place] [address] Care Team Providers Care School Of Nursing Director Name Role Phone Tavo Brown MD Primary Care Provider [phone] Source Comments [facility],non-owned Affiliates and Associated Physician Practices is amultiple site organization consisting of ambulatory clinics and hospital sitesin [place], [place], [place] and [place]. This disclosure is being madepursuant to the Care Everywhere program and may not contain all information available regarding this patient. Last updated 18.[facility] Allergies No known active allergies Medications Be aware that medications may not be up to date on this document. Always verify current medications with the patient. No known medications Social History Tobacco Use Types Packs/Day Years Used Date Smoking Tobacco: Never Assessed Sex and Gender Information Value Date Recorded Sex Assigned at Not on file Gender Identity Not on file Sexual Orientation Not on file Last Filed Vital Signs Vital Sign Reading Time Taken Comments Blood Pressure - - Pulse - - Temperature - - Respiratory Rate - - Oxygen Saturation - - Inhaled Oxygen Concentration - - Weight 20.3 kg (44 lb 12.1 oz) 11/04/2009 10:59 AM CDT Height 108.5 cm (3' 6.72 ) 11/04/2009 10:59 AM C DT Body Mass Index 17.24 11/04/2009 10:59 AM CDT Plan of Treatment Not on file Care Teams School Of Nursing Director Relationship Specialty Start Date End Date Tavo Brown MD [address] [place] [address] PCP - General 11/03/09
--- OUTSIDE RECORDS SUMMARY | 2024-05-07 11:27 | XMS_ITS | Encounter Summary ---
Author Organization [facility] Address [address] [place] [address] Care Team Providers Care Hockey Instructor Name Role Phone Tavo Brown MD Primary Care Provider [phone] Reason for Visit * Reason Comments Ear Problem BMT Consult Encounter Details Date Type Department Care Team (Latest Contact Info) Description 11/04/2009 10:57 AM CDT - 11/04/2009 11:59 PM CDT Hospital Encounter [facility] Pediatrics - ENT [address] [place] [address] Angely Frausto RN,CPNP [address] [place] [address] Discharge Disposition: Home or Self Care Social History Tobacco Use Types Packs/Day Years Used Date Smoking Tobacco: Never Assessed Sex and Gender Information Value Date Recorded Sex Assigned at Not on file Gender Identity Not on file Sexual Orientation Not on file documented as of this encounter Last Filed Vital Signs Vital Sign Reading Time Taken Comments Blood Pressure - - Pulse - - Temperature - - Respiratory Rate - - Oxygen Saturation - - Inhaled Oxygen Concentration - - Weight 20.3 kg (44 lb 12.1 oz) 11/05/19 10 10:59 AM CDT Height 108.5 cm (3' 6.72 ) 11/04/2009 1 0:59 AM CDT Body Mass Index 17.24 11/04/2009 10:59 AM CDT Body Mass Index Percentile 86.02% 11/04 10:59 AM CDT Growth Chart: [facility] (Girls, 2- 20 Years) documented in this encounter Discharge Instructions * Patient Instructions* Michelle Claudio LPN - 11/04/2009 12:25 PM CDT Your child has been scheduled for Same Day Surgery (Outpatient Surgery) A natural parent or a court appointed legal guardian MUST accompany the child DATE, TIME, & LOCATION If you know that you will not be able to keep your scheduled surgery date, please call: Sunday - Sunday, 9:00am - 4:00pm (or leave a voicemail message anytime 24hr a day/7-days a week) The surgery is: Bilateral Myringotomy Tubes By Dr. Underwood on: November 12 TIME OF ARRIVAL: Same Day Surgery will call you 3-4 days before your child's surgery date with the exact time of arrival. If you have not heard from them by 3 days before your surgery date, please call the location below where your child's surgery will take place. [facility] (To have surgery at this location, the child cannot have ANY OTHER medical condition ( DO NOT CANCEL SURGERY WITHOUT NOTIFYING US AT [phone] ) You must notify our office within 48 hours of any changes regarding your insurance or any additional insurance you may have to prevent cancellation of the surgery Insurance changes on the day of or the day before surgery will result in cancel/rescheduling of thesurgery SURGERY INSTRUCTIONS: She cannot have any solid food, milk, or orange juice after midnight before surgery (8 hours prior to the procedure). Clear liquids (water, Pedialyte, apple juice, 7-up, Sprite, Maxx-Aid, Jello, or popsicles) may be administered up to 3 hours prior to the time of arrival at the hospital. All infants 0-6 months may be fed milk 6 hours prior to the procedure. Sugar water or Pedialyte maybe administered up to 3 hours prior to the scheduled time of the procedure. If your child is on medications other than what we have prescribed or you are unsure as to whether a specific medication should be stopped, please call the ENT Nurse at or the prescribing doctor for instructions. In order for your child to take any medicines after midnight, the nightbefore surgery, you must call for instructions. Most medications can be given if needed with a small amount of water, but this must be cleared with the surgeon. Do not give aspirin, motrin/ibuprofen 10 days prior to surgery. Tylenol is OK If your child has been exposed to anyone with chicken pox, measles, or mumps within the last three weeks, OR if your child has a fever greater than 101 degrees or a cold or flu, surgery may be canceled - call for instructions. --The surgery will take place approximately 1 ?? - 2 hours after you arrive (the exact time cannot be predicted). --Your child will be ready to go home a few hours after surgery. Please be prepared to spend a goodpart of the day at the hospital. --No brothers or sisters are permitted, as waiting area space is limited. Patient provided with handouts including Myringotomy With Tubes Parent Information. documented in this encounter Progress Notes * Angely Frausto RN,CPNP - 11/04/2009 11:38 AM CDT Chief Complaint Patient presents with ??? Ear Problem BMT Consult History of Present Illness: Ruth Ann France is a 4 y.o. female who was seen in the Pediatric Otolaryngology Clinic for recurrent ear infections. She was accompanied by father. She had ear infections for the last 12 months. She had 4 ear infections in the last 6 months. She presents with cranky and runny nose. She has been on 7-10 day courses of Amoxicillin and Augmentin. Most recent infection: three months ago. Snoring No. Witnessed apnea No. Does the child have constant nasal congestion and/or rhinorrhea No. Past medical history: History: full term was normal. hearing screen passed Hospitalizations? No Previous Surgery umbilical hernia Immunizations: are up to date Growth and development: Age appropriate yes Social history: Lives with biological parents, 1 siblings. Exposure to smoking: Yes. [facility]. Family history: hearing loss No. Surgical or anesthesia complications No Review of systems: Constitutional: child is weight appropriate Ears, Nose, Mouth, Throat: has had no tonsillitis or strep throat; has not had frequent URI's Cardiovascular: does not have heart disease Respiratory: does not have asthma or wheezing Integumentary: has had no rash or eczema Neurological: has had no seizures Endocrine: does not have a history of thyroid problems Hematologic: does not bruise easily Medications: No current outpatient prescriptions on file. Allergies: Review of patient's allergies indicates no known allergies. Physical Exam: Height: 108.5 cm (3' 6.72 ) Weight: 20.3 kg (44 lb 12.1 oz) Body mass index is 17.24 kg/(m^2). Body mass index is 17.24 kg/(m^2). Constitutional: no retractions or cyanosis Head and Face: no lesions or masses; facies symmetrical Eyes: ocular motion with gaze alignment Ears: Inspection: normal pinnae shape and position Otoscopy: External canal: normal bilaterally Tympanic membrane: Right ear: normal landmarks and mobility Left ear: normal landmarks and mobility Nasal: normal external nose, mucous membranes and septum Oral Cavity: moist mucous membranes; normal uvula, palate and tongue size Throat: tonsils 1+ Neck: supple without tenderness or crepitus; no palpable adenopathy Cranial Nerve Exam: grossly intact; CN VII symmetrical Respiration: unlabored breathing Skin: skin healthy Audiology: mild conductive hearing loss on the right Tympanometry: Right ear: flat Left ear: normal Assessment: Right ear: recurrent acute otitis media Left ear: recurrent acute otitis media Plan: tympanostomy tubes The nature, risks and benefits were explained. The family elected to meet the surgeon the day of surgery. documented in this encounter Miscellaneous Notes * Miscellaneous Scans - Document, Scanned - 11/04/2009 12:00 AM CDT * Miscellaneous Scans - Document, Scanned - 11/04/2009 12:00 AM CDT * Miscellaneous Scans - Document, Scanned - 11/04/2009 12:00 AM CDT documented in this encounter Plan of Treatment Not on file documented as of this encounter Visit Diagnoses Diagnosis Recurrent acute otitis media Unspecified otitis media documented in this encounter Care Teams Hockey Instructor Relationship Specialty Start Date End Date Tavo Brown MD [address] [address] PCP - General 11/03/09 documented as of this encounter
--- OUTSIDE RECORDS SUMMARY | 2024-05-07 11:27 | XMS_ITS | Patient Health Summary ---
Author Organization [facility] Address [address] [place] [address] Care Team Providers Care Study Abroad Coordinator Name Role Phone Tavo Brown MD Primary Care Provider [phone] Note from [facility],non-owned Affiliates and Associated Physician Practices is amultiple site organization consisting of ambulatory clinics and hospital sitesin [place], [place], [place] and [place]. This disclosure is being madepursuant to the Care Everywhere program and may not contain all information available regarding this patient. Last updated 18.[facility] Allergies No known active allergies Medications Be [...] Mass Index 17.24 11/04/2009 10:59 AM CDT Care Teams Study Abroad Coordinator Relationship Specialty Start Date End Date Tavo Brown MD [address] [place] [address] PCP - General 11/03/09
--- OUTSIDE RECORDS SUMMARY | 2024-05-07 11:27 | XMS_ITS | Clinical Summary ---
Author Organization [facility] Address [address] [place] [address] Care Team Providers Care Warehouse Hand Name Role Phone Tavo Brown MD Primary Care Provider [phone] Source Comments [facility] [facility],non-owned Affiliates and Associated Physician Practices is amultiple site organization consisting of ambulatory clinics and hospital sitesin [place], [place], [place] and [place]. This disclosure is being madepursuant to the Care Everywhere program and may not contain all information available regarding this patient. Last updated 18.[facility] [facility] Allergies No known active allergies Medications Be aware that medications may not be up to date on this document. Always verify current medications with the patient. No known medications Family History Medical History Relation Name Comments Anesthesia Reaction Neg Hx Bleeding Disorders Neg Hx Childhood Hearing Disorder Neg Hx Social History Tobacco Use Types Packs/Day Years [...] 11/04/2009 10:59 AM CDT Plan of Treatment Health Maintenance Due Date Last Done Comments HIV SCREENING 09/21/2018 HPV VACCINE (1 - 3-dose series) 09/21/2018 CHLAMYDIA/GONORRHEA SCREENING 2019 HEPATITIS C SCREENING 09/17/2021 DTAP/TDAP/TD VACCINES (1 - Tdap) 09/21/2022 HEPATITIS B VACCINE (1 of 3 - 19+ 3-dose series) 09/21/2022 DEPRESSION SCREENING 05/21/2023 COVID-19 VACCINE (1 - 2023-2 5 season) 2024 INFLUENZA VACCINE (#1) 2024 ZOSTER VACCINE (1 of 2) 09/21/2053 HIB VACCINE Aged Out No longer eligi ble based on patient's age to complete this topic MENINGOCOCCAL VACCINE Aged Out No jayden dena eligible based on patient's age to complete this topic PNEUMOCOCCAL VACCINE Aged Out No long er eligible based on patient's age to complete this topic Care Teams Warehouse Hand Relationship Specialty Start Date End Date Tavo Brown MD [address] [place] [address] PCP - General 11/03/09
--- OUTSIDE RECORDS SUMMARY | 2024-05-07 14:49 | XMS_ITS | Patient Health Summary ---
Author Organization [facility] Address [address] [place] [address] Care Team Providers Care Furniture Servicer Name Role Phone Tavo Brown MD Primary Care Provider [phone] Note from [facility],non-owned Affiliates and Associated Physician Practices is amultiple site organization consisting of ambulatory clinics and hospital sitesin [place], [place], [place] and [place]. This disclosure is being madepursuant to the Care Everywhere program and may not contain all information available regarding this patient. Last updated 18.[facility] Allergies No known active allergies Medications Be [...] 17.24 11/04/2009 10:59 AM CDT Care Teams Furniture Servicer Relationship Specialty Start Date End Date Tavo Brown MD [address] [place] [address] PCP - General 11/03/09
--- OUTSIDE RECORDS SUMMARY | 2024-05-07 14:49 | XMS_ITS | Encounter Summary ---
Author Organization [facility] Address [address] [place] [address] Care Team Providers Care Die Assembler Name Role Phone Tavo Brown MD Primary Care Provider [phone] Reason for Visit * Reason Comments Ear Problem BMT Consult Encounter Details Date Type Department Care Team (Latest Contact Info) Description 11/04/2009 10:57 AM CDT - 11/04/2009 11:59 PM CDT Hospital Encounter [facility] Pediatrics - ENT [address] [place] [address] Angely Frausto RN,CPNP [address] [place] [address] Discharge Disposition: Home or Self Care Social [...] 86.02% 11/04 10:59 AM CDT Growth Chart: [facility] (Girls, 2- 20 Years) documented in this [...] surgery will take place. [facility] (To have surgery at this location, the child cannot have ANY OTHER medical condition ( DO NOT CANCEL SURGERY WITHOUT NOTIFYING US AT [phone] ) You must notify our office within [...] siblings. Exposure to smoking: Yes. [facility]. Family history: hearing loss No. Surgical [...] media documented in this encounter Care Teams Die Assembler Relationship Specialty Start Date End Date Tavo Brown MD [address] [address] PCP - General 11/03/09 documented as of this encounter
--- OUTSIDE RECORDS SUMMARY | 2024-05-07 14:49 | XMS_ITS | Clinical Summary ---
Author Organization [facility] Address [address] [place] [address] Care Team Providers Care Band Singer Name Role Phone Tavo Brown MD Primary Care Provider [phone] Source Comments [facility],non-owned Affiliates and Associated Physician Practices is amultiple site organization consisting of ambulatory clinics and hospital sitesin [place], [place], [place] and [place]. This disclosure is being madepursuant to the Care Everywhere program and may not contain all information available regarding this patient. Last updated 18.[facility] Allergies No known active allergies Medications Be [...] age to complete this topic Care Teams Band Singer Relationship Specialty Start Date End Date Tavo Brown MD [address] [place] [address] PCP - General 11/03/09
--- OUTSIDE RECORDS SUMMARY | 2024-05-07 14:49 | XMS_ITS | Encounter Summary ---
Author Organization [facility] Address [address] [place] [address] Care Team Providers Care Sheet Metal Layout Worker Name Role Phone Tavo Brown MD Primary Care Provider [phone] Encounter Details Date Type Department Care Team (Latest Contact Info) Description 11/12/2009 12:01 AM CDT - 11/12/2009 11:59 PM CDT Hospital Encounter [facility] [address] [place] [address] [place] [address] [place] [address] Surgery General Discharge Disposition: Home [...] Roman Underwood MD - [facility]12[facility]2009 12[facility] ATTENDING SURGEON: Roman [...] By: ROMAN UNDERWOOD MD NICKO/mary JOB ID: [id number] documented in this encounter Miscellaneous Notes * [...] on filedocumented in this encounter Care Teams Sheet Metal Layout Worker Relationship Specialty Start Date End Date Tavo Brown MD [address] [place] [address] PCP - General 11/03/09 documented as of this encounter
--- OUTSIDE RECORDS SUMMARY | 2024-05-07 14:49 | XMS_ITS | Referral Summary ---
Author Organization [facility] Address [address] [place] [address] Care Team Providers Care Clinical Lab Assistant Name Role Phone Tavo Brown MD Primary Care Provider [phone] Source Comments [facility],non-owned Affiliates and Associated Physician Practices is amultiple site organization consisting of ambulatory clinics and hospital sitesin [place], [place], [place] and [place]. This disclosure is being madepursuant to the Care Everywhere program and may not contain all information available regarding this patient. Last updated 18.[facility] Allergies No known active allergies Medications Be [...] of Treatment Not on file Care Teams Clinical Lab Assistant Relationship Specialty Start Date End Date Tavo Brown MD [address] [place] [address] PCP - General 11/03/09
== END 2024-05-03 14:26 | disposition home or self-care (01) ==
PROVIDERS: Emergency Provider Emergency Medicine
DX: K08.89 Other specified disorders of teeth and supporting structures (principal); F17.290 Nicotine dependence, other tobacco product, uncomplicated
CPT/HCPCS: 96372; 99283; A9270; J1885